=== PATIENT | female | born 1965 | race Caucasian/White ===

== ENCOUNTER → 2017-11-24 15:55 | Outpatient (CLI) | payer OTHER, SELFPAY ==
[2017-11-24 16:55] LABS: B Type Natriuretic Peptide 29.3 (<100)
[2017-11-24 16:56] LABS: BUN Creatinine Ratio 18.3 (6-22); Blood Urea Nitrogen 11 mg/dL (7-17); Calcium 9.4 mg/dL (8.4-10.2); Carbon Dioxide 35 mmol/L (22-32); Chloride 94 mmol/L (98-107); Estimated Glomerular Filt Rate > 60.0 mL/min (>60); Glucose 98 mg/dL (70-100); HEMOLYSIS < 15 (0-50); Potassium 4.6 mmol/L (3.4-5.1); Sodium 137 mmol/L (137-145)
== END ==
PROVIDERS: PCP Family Medicine; Visit Provider Family Medicine
DX: R60.0 Localized edema (principal)
CPT/HCPCS: 36415; 80048; 83880

== ENCOUNTER 2017-11-28 14:14 | Emergency (ER) | payer OTHER, SELFPAY ==
[2017-11-28 14:27] VITALS: BP 130/89; PULSE 91; RESP 16; TEMP 36.8; O2SAT 95
--- NOTE | 2017-11-28 14:46 | ED.ALLEREA ---
HPI - Allergic Reaction General Chief complaint: Allergic Reaction Stated complaint: FACE,LEGS SWELLING, POSSIBLE ALLERGIC REACTION Time Seen by Provider: 11/28/17 14:45 Source: patient Mode of arrival: ambulatory Limitations: no limitations History of Present Illness HPI narrative: 52-year-old female here for evaluation of possible reaction to her medicines. Patient states that every summer she develops lower extremity edema and in the past has been on spironolactone. She states that this year her primary doctor started her on hydrochlorothiazide and over the past 2 weeks she has been increasing that medicine slowly. She states that her edema has not improved. She states that normally improves the spinal lack tone. She states that over the past 24 hr she has developed some itchy skin. She states she called her primary doctor whose nurse instructed her to come to the emergency department. Related Data Home Medications Medication Instructions Recorded Confirmed ondansetron 8 mg SUBLINGUAL Q6HP PRN #0 10/09/16 11/28/17 [CBD cream] 1 applic TOPICAL DIRECTED #0 07/18/17 11/28/17 buspirone 60 mg PO DAILY 11/28/17 11/28/17 divalproex [Depakote] 1,000 mg PO DAILY 11/28/17 11/28/17 Previous Rx's Medication Instructions Recorded albuterol sulfate [Ventolin HFA] 2 puff INH SEE INSTRUCTIONS #1 ea 02/13/17 estradiol [Estrace] 2 mg PO Q DAY #90 tab 04/18/17 omeprazole 40 mg OR QDAY #90 cap 10/21/17 lamotrigine 150 mg tablet 150 mg PO QDAY #90 tab 10/31/17 spironolactone 100 mg PO DAILY #30 tab 11/28/17 Allergies Allergy/AdvReac Type Severity Reaction Status Date / Time lorazepam [From ATIVAN] Allergy Intermediate PT REFUSES Verified 11/28/17 14:33 MEDICATION morphine [MORPHINE] Allergy Intermediate PT REFUSES Verified 11/28/17 14:33 MEDICATION Review of Systems Constitutional Denies fatigue, Denies fever(s) and Denies lethargy Eyes Denies diplopia ENT Ears, Nose, Mouth, and Throat: Denies dizziness, Denies mouth lesions, Denies sinus pain, Denies sore throat, Denies throat swelling and Denies tongue swelling Cardiovascular Denies chest pain, Denies syncope, Denies palpitations and Denies dyspnea Respiratory Denies cough and Denies dyspnea Gastrointestinal Gastrointestinal: Denies diarrhea, Denies nausea and Denies vomiting Genitourinary Denies dysuria Musculoskeletal Comments: Bilateral lower extremity edema right greater than left Integumentary/Breasts Reports pruritus and Denies rash Neurologic Denies behavioral changes, Denies dizziness and Denies syncope Psychiatric Denies behavioral changes Endocrine Denies fatigue and Denies palpitations Hematologic/Lymphatic Denies easy bleeding and Denies easy bruising Allergic/Immunologic Denies throat swelling and Denies tongue swelling [facility] Medical History Fibromyalgia (Chronic 2008) Hypertension (Chronic) Bipolar affective disorder (Chronic 1973) Presence of colostomy (Chronic 10/09/16) Gastroesophageal reflux disease without esophagitis (Chronic 10/09/16) Gastroparesis (Chronic 10/09/16) Tobacco use (Chronic 10/09/16) Generalized anxiety disorder (Chronic 1973) Obesity with body mass index (BMI) of 30.0 to 39.9 (Chronic 07/29/17) Insomnia (Chronic 07/29/17) ADHD (attention deficit hyperactivity disorder) (Chronic) Asthma (Chronic 1964) Depression (Chronic 1973) Gastric ulcer (Chronic) Hayfever (Chronic 1964) Hiatal hernia (Chronic) Osteoarthritis (Chronic 2012) Osteoporosis (Chronic 2010) PTSD (post-traumatic stress disorder) (Chronic 1973) RLS (restless legs syndrome) (Chronic 1992) Shoulder pain (Chronic 2016) Anemia (Resolved ~1975) Cervical cancer (Resolved) Fractures (Resolved 1975) Surgical History Anesthesia (Resolved) History of bladder suspension procedure (Resolved 2003) Status post breast biopsy (Resolved) Status post colostomy (Resolved) Status post dilation and curettage (Resolved) Status post hysterectomy (Resolved) Status post rotator cuff repair (Resolved 2014) Status post tubal ligation (Resolved) Family History Grandmother Stroke Grandfather Emphysema, unspecified Social History Smoking Status: Current every day smoker Exam Initial Vital Signs Initial Vital Signs: Vital Signs Temperature 98.2 F 11/28/17 14:27 Pulse Rate 91 H 11/28/17 14:27 Respiratory Rate 16 11/28/17 14:27 Blood Pressure 130/89 H 11/28/17 14:27 Pulse Oximetry 95 11/28/17 14:27 Const General: cooperative, healthy appearing, comfortable, well developed and well groomed [facility] Head: normal to inspection, normocephalic and atraumatic Resp Effort & Inspection: normal respiratory effort Auscultation: clear to auscultation bilaterally Cardio Rate: regular rate Rhythm: regular rhythm Pulses: radial pulses present Skin Lesions: no lesions Rashes: no rashes Wounds: no wounds Neuro General: alert, awake and oriented x3 Cognition: normal cognition Speech: speech normal Extrem Other: Bilateral lower extremity 1+ pitting edema right greater than left Course Vital Signs - 8 hr 11/28/17 14:27 11/28/17 15:29 11/28/17 15:45 Temperature 98.2 F 98.4 F Pulse Rate 91 H 83 88 Respiratory Rate 16 18 15 Blood Pressure 130/89 H 144/85 H Blood Pressure [Right Arm] 147/85 H Pulse Oximetry 95 96 98 MDM - Allergic Reaction MDM Narrative Medical decision making narrative: Patient with physical exam not consistent with anaphylaxis. Difficult to pin the symptoms she is having today on the hydrochlorothiazide that she has been taking for the past 3 weeks. Patient states she was no longer going to take the hydrochlorothiazide because she feels like she is having reaction to it. Will start her on spironolactone since this has helped her in the past. No need for steroids or Benadryl or epinephrine. Informed patient that she needed to contact her primary doctor to discuss the medication change. She was given return precautions. She expressed understanding and agreement with plan Discharge Plan Departure Patient Disposition: Home, Self-Care Clinical Impression: Edema, peripheral Discharge Date/Time: 11/28/17 15:45 Interventions: ED Discharge Assessment Last Done: 11/28/17 15:45 Instructions: Edema (Alternative Therapy), DI for Dependent Edema, DI for Peripheral Edema -- Bilateral Activity Restrictions/Additional Instructions: Recommend that you stop the hydrochlorothiazide. Start the spironolactone as directed. Call your primary doctor on Friday to discuss this change in medication and to discuss any follow-up. Return to the emergency department for any new or worsening symptoms Prescriptions: New spironolactone 100 mg tablet 100 mg PO DAILY Qty: 30 RF: 0 No Action ondansetron 8 MG tablet,disintegrating 8 mg Sublingual Q6HP PRN (Reason: Nausea) Qty: 0 RF: 0 albuterol sulfate [Ventolin HFA] 90 MCG/PUFF HFA aerosol inhaler 2 puff INH SEE INSTRUCTIONS Qty: 1 RF: 3 estradiol [Estrace] 2 MG tablet 2 mg PO Q DAY Qty: 90 RF: 3 [CBD cream] 1 applic Topical DIRECTED Qty: 0 RF: 0 omeprazole 40 mg capsule,delayed release(DR/EC) 40 mg OR QDAY Qty: 90 RF: 0 lamotrigine [Lamictal] 150 mg tablet 150 mg PO QDAY Qty: 90 RF: 0 divalproex [Depakote] 500 mg tablet,delayed release (DR/EC) 1,000 mg PO DAILY RF: 0 buspirone 30 mg tablet 60 mg PO DAILY RF: 0
[2017-11-28 15:29] VITALS: BP 147/85; PULSE 83; RESP 18; TEMP 36.9; O2SAT 96
[2017-11-28 15:45] VITALS: BP 144/85; PULSE 88; RESP 15; O2SAT 98
== END 2017-11-28 15:45 | disposition home or self-care (01) ==
PROVIDERS: Emergency Provider Emergency Medicine; PCP Family Medicine
DX: R60.0 Localized edema (principal)
CPT/HCPCS: 99282

== ENCOUNTER → 2018-01-06 15:03 | Outpatient (CLI) | payer OTHER, SELFPAY ==
[2018-01-06 16:18] LABS: Blood Urea Nitrogen 14 mg/dL (7-17); Calcium 10.1 mg/dL (8.4-10.2); Carbon Dioxide 32 mmol/L (22-32); Chloride 98 mmol/L (98-107); Estimated Glomerular Filt Rate > 60.0 mL/min (>60); Glucose 92 mg/dL (70-100); HEMOLYSIS < 15 (0-50); Potassium 5.5 mmol/L (3.4-5.1); Sodium 138 mmol/L (137-145)
== END ==
PROVIDERS: PCP Family Medicine; Visit Provider Family Medicine
DX: R60.0 Localized edema (principal)
CPT/HCPCS: 36415; 80048

== ENCOUNTER → 2018-03-09 12:19 | Outpatient (CLI) | payer OTHER, SELFPAY ==
--- NOTE | 2018-03-09 12:23 | DI.RAD.S_ITS ---
PROCEDURE: XR FOOT RT MIN 3V INDICATIONS: right foot pain TECHNIQUE: 3 views of the foot were acquired. COMPARISON: [facility], , FOOT 3V RIGHT, 07/13/2017, 16:35. FINDINGS: Bones: No fractures or dislocations. No suspicious bony lesions. Mild degenerative changes are seen. Incidental note is made of an enthesophyte at the Achilles insertion. Incidental note is made of an accessory ossicle, an os trigonum. Soft tissues: No tibiotalar joint effusion. Achilles tendon appears normal. IMPRESSION: Unremarkable plain film study for age. If there is point tenderness (or other clinical suspicion for a fracture not seen on these images) then a dedicated CT could be considered for further evaluation, as clinically appropriate. Dictated by: Aram Cavanaugh M.D. on 03/09/2018 at 12:07 Approved by: Aram Cavanaugh M.D. on 03/09/2018 at 12:08
== END ==
PROVIDERS: PCP Family Medicine; Visit Provider Internal Medicine
DX: M79.671 Pain in right foot (principal)
CPT/HCPCS: 73630

== ENCOUNTER → 2018-07-28 06:57 | Outpatient (CLI) | payer OTHER, SELFPAY ==
--- NOTE | 2018-07-28 06:59 | DI.US.S_ITS ---
PROCEDURE: US PERIPH VENOUS LOW EXTREM BI INDICATIONS: SWELLING, TENDERNESS TECHNIQUE: Real-time imaging, as well as color and pulse Doppler interrogation, were performed of the deep veins of both legs from the inguinal ligament to the popliteal fossa. COMPARISON: None. FINDINGS: The deep veins are normally compressible, and free of intraluminal thrombus. Color and pulse Doppler demonstrate normal phasic intravascular flow. There is normal augmentation response to distal compression maneuver. Incidental note is made of bilateral popliteal cysts. IMPRESSION: 1. No evidence of deep vein thrombosis of the lower extremities. 2. Bilateral Pompa's cysts. Dictated by: Luis Fernando Aaron M.D. on 07/28/2018 at 8:23 Approved by: Luis Fernando Aaron M.D. on 07/28/2018 at 8:24
== END ==
PROVIDERS: PCP Family Medicine; Visit Provider Registered Nurse
DX: R60.0 Localized edema (principal); M71.22 Synovial cyst of popliteal space [Baker], left knee; M71.21 Synovial cyst of popliteal space [Baker], right knee
CPT/HCPCS: 93970

== ENCOUNTER → 2018-08-04 12:25 | Outpatient (CLI) | payer OTHER, SELFPAY ==
[2018-08-04 13:43] LABS: TSH w/ Reflex to FT4 2.91 uIU/mL (0.47-4.68)
[2018-08-07 14:26] LABS: Valproic Acid (Depakene) Total 40.6 mg/L (50.0-100.0)
== END ==
PROVIDERS: PCP Family Medicine; Visit Provider Family Medicine
DX: R63.5 Abnormal weight gain (principal); F31.9 Bipolar disorder, unspecified; R23.2 Flushing
CPT/HCPCS: 36415; 80164; 83001; 84443

== ENCOUNTER → 2019-06-22 10:45 | Outpatient (CLI) | payer OTHER, SELFPAY ==
[2019-06-22 11:28] LABS: Influenza A - CEPHEID Flu A NEGATIVE (NEGATIVE); Influenza B - CEPHEID Flu B NEGATIVE (NEGATIVE)
== END ==
LOC: LAB 10:46
PROVIDERS: PCP Family Medicine; Visit Provider Nurse Practitioner Family
DX: R50.9 Fever, unspecified (principal)
CPT/HCPCS: 87502

== ENCOUNTER → 2019-07-06 10:23 | Outpatient (CLI) | payer OTHER, SELFPAY ==
[2019-07-06 11:13] LABS: Add Manual Diff / Slide Review NO; Basophils Absolute Auto 100 /uL (0-100); Basophils Percent Auto 1.4 % (0-2); Eosinophils Absolute Auto 0 /uL (0-450); Eosinophils Percent Auto 0.3 % (2-4); Hematocrit 45.9 % (36-46); Hemoglobin 15.7 g/dL (12.0-16.0); Lymphocytes Absolute Auto 2600 /uL (1100-4500); Lymphocytes Percent Auto 39.7 % (25-40); Mean Corpuscular HGB Conc 34.1 % (30-36); Mean Corpuscular Hemoglobin 32.4 PG (26-34); Mean Corpuscular Volume 95.1 fL (80-100); Monocytes Absolute Auto 700 /uL (0-900); Monocytes Percent Auto 11.3 % (3-14); Neutrophils Absolute Auto 3100 /uL (1500-7000); Neutrophils Percent Auto 47.3 % (50-75); Platelet Count 216 X10^3/uL (150-400); Red Blood Cell Count 4.83 X10^6/uL (4.0-5.2); Red Cell Distribution Width 13.2 % (11.6-14.8); White Blood Cell Count 6.5 X10^3/uL (4.5-11.0)
[2019-07-06 11:23] LABS: Alanine Aminotransferase 61 IU/L (<35); Albumin 4.3 g/dL (3.5-5.0); Albumin Globulin Ratio 1.3 (1.0-2.8); Alkaline Phosphatase 108 U/L (38-126); Aspartate Aminotransferase 44 IU/L (14-36); BUN Creatinine Ratio 17.1 (6-22); Bilirubin Total 0.5 mg/dL (0.2-1.3); Blood Urea Nitrogen 12 mg/dL (7-17); Calcium 9.5 mg/dL (8.4-10.2); Carbon Dioxide 31 mmol/L (22-32); Chloride 100 mmol/L (98-107); Cholesterol 238 mg/dL (140-199); Estimated Glomerular Filt Rate > 60.0 mL/min (>60); Globulin 3.4 g/dL (1.7-4.1); Glucose 172 mg/dL (70-100); HDL Cholesterol 45 mg/dL (40-60); HEMOLYSIS 22 (0-50); LDL Cholesterol Calculated 166 mg/dL (<100); Potassium 4.8 mmol/L (3.4-5.1); Sodium 139 mmol/L (137-145); Total Protein 7.7 g/dL (6.3-8.2); Triglycerides 133 mg/dL (35-150)
[2019-07-09 13:56] LABS: Valproic Acid (Depakene) Total 60.7 mg/L (50.0-100.0)
== END ==
PROVIDERS: PCP Family Medicine; Visit Provider Family Medicine
DX: E66.01 Morbid (severe) obesity due to excess calories (principal); I10 Essential (primary) hypertension; Z68.41 Body mass index [BMI] 40.0-44.9, adult; F31.9 Bipolar disorder, unspecified
CPT/HCPCS: 36415; 80053; 80061; 80164; 85025

== ENCOUNTER → 2019-08-16 14:45 | Outpatient (CLI) | payer OTHER, SELFPAY ==
[2019-08-16 19:01] LABS: Hemoglobin A1C% w Est Avg Glu 7.1 % (4.0-6.0)
== END ==
LOC: LAB 14:46
PROVIDERS: PCP Family Medicine; Referring Provider Family Medicine; Visit Provider Family Medicine
DX: R73.9 Hyperglycemia, unspecified (principal)
CPT/HCPCS: 36415; 83036

== ENCOUNTER → 2019-12-29 09:01 | Outpatient (CLI) | payer OTHER, SELFPAY ==
--- NOTE | 2019-12-29 09:14 | DI.RAD.S_ITS ---
PROCEDURE: XR LUMBAR SPINE MIN 4V INDICATIONS: Other intervertebral disc displacement, lumbar region TECHNIQUE: 5 views of the lumbar spine were acquired. COMPARISON: 07/29/13. FINDINGS: Bones: No fracture or focal osseous destruction. Straightening of the normal lordotic curvature. Diffuse moderate narrowing of the lumbar disc spaces with relative sparing at L1-L2. Levoscoliosis noted. Trace anterolisthesis of L3 on L4. Multilevel degenerative endplate sclerosis and spurring. Diffuse facet arthropathy. Bilateral hip joint degeneration also noted. Soft tissues: Overlying bowel gas pattern is normal. No suspicious soft tissue calcifications. Oblique images: No pars defects. IMPRESSION: Levoscoliosis. Diffuse moderate lumbar spondylosis, which has progressed since 07/29/13 Dictated by: Sergio Hernandez M.D. on 12/29/2019 at 10:05 Approved by: Sergio Hernandez M.D. on 12/29/2019 at 10:09
== END ==
PROVIDERS: PCP Family Medicine; Referring Provider Physical Medicine & Rehabilitation; Visit Provider Physical Medicine & Rehabilitation
DX: M51.26 Other intervertebral disc displacement, lumbar region (principal); M47.816 Spondylosis without myelopathy or radiculopathy, lumbar region; M16.0 Bilateral primary osteoarthritis of hip; E66.01 Morbid (severe) obesity due to excess calories; Z68.42 Body mass index [BMI] 45.0-49.9, adult; Z98.890 Other specified postprocedural states
CPT/HCPCS: 72110; 99214

== ENCOUNTER → 2019-12-30 10:27 | Outpatient (CLI) | payer OTHER, SELFPAY ==
[2019-12-30 11:08] LABS: Hemoglobin A1C% w Est Avg Glu 7.8 % (4.0-6.0)
[2019-12-30 11:43] LABS: Creatinine Urine Random 20.6 mg/dL
[2019-12-30 11:50] LABS: Microalbumi Creatinin Ratio Ur 29.1 ug/mg CR (<30); Microalbumin Urine Random < 0.6 mg/dL (0-1.6)
== END ==
PROVIDERS: PCP Family Medicine; Referring Provider Family Medicine; Visit Provider Family Medicine
DX: E11.9 Type 2 diabetes mellitus without complications (principal)
CPT/HCPCS: 36415; 82043; 82570; 83036

== ENCOUNTER → 2019-12-31 16:05 | Outpatient (CLI) | payer OTHER, SELFPAY ==
--- NOTE | 2019-12-31 16:06 | DI.MRI.S_ITS ---
PROCEDURE: MR LUMBAR SPINE WO CON INDICATIONS: Lumbar radiculopathy TECHNIQUE: Noncontrast sagittal T1 spin echo and T2 fast echo, sagittal STIR, axial T1 and T2 fast spin echo through the lumbar spine. In cases with scoliosis, additional coronal T2 fast spin echo may be performed. COMPARISON: [facility], CR, XR LUMBAR SPINE MIN 4V, 12/29/2019, 9:13. FINDINGS: Image quality: Excellent. Alignment and Curvature: 5 lumbar type vertebral bodies are present by plain film. Mild leftward curvature of the lower lumbar spine. Mild grade 1 retrolisthesis of L2 on L3 and L3 on L4. Bone Marrow: Marrow is of normal overall signal. No acute vertebral body compression fractures. Mild reactive signal within the endplates adjacent to the L2-L3, L4-L5, and L5-S1 intervertebral discs. Spinal Cord: Conus medullaris terminates at the upper L1 level. Visualized cord demonstrates normal signal and size. Paraspinous Soft Tissues: No paravertebral masses. L1-L2: Mild disc desiccation. Mild bilateral facet hypertrophy. Mild epidural lipomatosis. No significant canal, nor foraminal stenosis. L2-L3: Moderate disc desiccation. Mild diffuse disc bulge. Mild facet and ligamentum flavum hypertrophy. Mild epidural lipomatosis. Mild canal stenosis. Mild bilateral foraminal stenosis. L3-L4: Mild disc desiccation. Mild diffuse disc bulge. Mild facet and ligamentum flavum hypertrophy. Mild epidural lipomatosis. Moderate canal stenosis. Mild bilateral foraminal stenosis. L4-L5: Moderate disc desiccation. Mild diffuse disc bulge with superimposed left paracentral small protrusion. Mild facet and ligamentum flavum hypertrophy. Mild epidural lipomatosis. Moderate canal stenosis. Moderate left and mild right foraminal stenosis. There is abutment of the left L5 nerve root within the lateral recess without definite associated neural compression nor deviation. L5-S1: Severe disc height loss and desiccation. Mild diffuse disc bulge/osteophyte. Mild bilateral facet hypertrophy. Mild canal stenosis. Mild bilateral foraminal stenosis. IMPRESSION: 1. Multilevel degenerative disc and facet disease, as well as ligamentum flavum hypertrophy and epidural lipomatosis. 2. Multilevel canal stenosis, worst at L4-L5, where there is moderate canal stenosis. 3. Multilevel foraminal stenoses, worst at L4-L5 on the left where there is moderate foraminal stenosis. 4. L4-L5 disc protrusion which abuts the left L5 nerve root without definite neural compression or deviation. Recommend correlation with clinical symptoms to ascertain relevance of this finding. Dictated by: Brennan Luna M.D. on 12/31/2019 at 16:20 Approved by: Brennan Luna M.D. on 12/31/2019 at 16:25
== END ==
PROVIDERS: PCP Family Medicine; Referring Provider Physical Medicine & Rehabilitation; Visit Provider Physical Medicine & Rehabilitation
DX: M51.16 Intervertebral disc disorders with radiculopathy, lumbar region (principal); M51.17 Intervertebral disc disorders with radiculopathy, lumbosacral region; M48.061 Spinal stenosis, lumbar region without neurogenic claudication; M48.07 Spinal stenosis, lumbosacral region; E88.2 Lipomatosis, not elsewhere classified; Z98.890 Other specified postprocedural states
CPT/HCPCS: 72148

== ENCOUNTER → 2020-01-29 08:20 | Outpatient (CLI) | payer OTHER, SELFPAY ==
[2020-01-30 18:51] LABS: COVID19 Sendout Not Detected (Not Detect)
== END ==
PROVIDERS: PCP Family Medicine; Visit Provider Nurse Practitioner
DX: Z11.59 Encounter for screening for other viral diseases (principal)
CPT/HCPCS: 87635

== ENCOUNTER 2020-02-01 13:00 | Outpatient (CLI) | payer OTHER, SELFPAY ==
[2020-02-01] VITALS (7 sets, daily range): BP systolic 123–165; BP diastolic 71–89; PULSE 81–92; RESP 12–22; TEMP 36.4; O2SAT 95–99
--- NOTE | 2020-02-01 13:01 | DI.RAD.S_ITS ---
PROCEDURE: PAIN L/S TRANSFORAMINAL INJECT INDICATIONS: Left L4-5 transforaminal NEFTALI COMPARISON: None. FINDINGS: Fluoroscopic spot filming was performed to verify placement of spinal needles at the L4-L5 level(s), as labeled on the films. Appropriate location(s) of the needle tip(s) was confirmed by injection of iodinated contrast. Dictated by: Sergio Hernandez M.D. on 02/01/2020 at 15:53 Approved by: Sergio Hernandez M.D. on 02/01/2020 at 15:54
[2020-02-01] MEDS: MIDAZOLAM 5 MG/5 ML VIAL IV (14:03)
[2020-02-01] MEDS: fentaNYL 100 MCG/2 ML INJ 50 MCG IV (14:03)
[2020-02-01] MEDS: DEXAMETHASONE 10 MG/ML VIAL 20 MG INJ (14:09)
[2020-02-01] MEDS: IOPAMIDOL 15 ML VIAL 3 ML INJ (14:09)
[2020-02-01] MEDS: BUPIVACAINE 0.25% (PF) VIAL 2 ML INJ (14:09)
[2020-02-01] MEDS: BETAMETHASONE 30 MG/5 ML MDV 6 MG INJ (14:09)
--- NOTE | 2020-02-01 14:23 | P.PCN_ITS ---
Date/Time/Diagnoses Date of procedure: 02/01/20 Time of procedure: 14:23 Pre-procedure diagnosis: 1. FORAMINAL STENOSIS WITH LE SYMPTOMS Post-procedure diagnosis: same Procedure Notes Procedure: 1. FLUOROSCOPICALLY GUIDED CONTRAST CONTROLLED TRANSFORAMINAL EPIDURAL STEROID INJECTION - LEFT L4/5 Indications: Cal is referred by for treatment of Foraminal Stenosis with Left LE Symptoms Physician: Obed Knapp Total Fluoroscopy time (seconds): 22 Total sedation minutes: 18 Complications: none Procedure in detail & Post-procedure care: FINDINGS Foraminal Nerve Root Compression secondary to disc disease and facet hypertrophy DESCRIPTION OF PROCEDURE Following review of allergy and review of potential side effects and complications, including, but not necessarily limited to, infection, allergic reaction, local tissue breakdown, stroke, temporary or permanent nerve injury, paralysis, and possible , the patient indicated that the patient understood and agreed to proceed. An informed consent document was signed by the patient, witnessed by a nurse, and placed in the patient's chart. Additionally, other treatment options including medications, modalities, and physical therapy were reviewed with the patient. After review of previous anaesthesic history and IV conscious sedation the patient was deemed safe to proceed with today?s procedure with IV conscious sedation as ASA class II designation. Safety time-out was performed to confirm patient ID, procedure to be performed and site of procedure. IV sedation was accomplished with a combination of 2mg of Versed and 50mcg of Fentanyl administered by the RN after DO order, titrated to patient comfort during the course of the procedure while the patient remained responsive to all verbal commands In the prone position following sterile prep and drape of the lumbar region, the left L4/5 posterior neuroforamen was identified fluoroscopically. The skin was anesthetized via a 25-gauge 1.5-inch needle with 1% lidocaine solution. At this point, a 22-gauge 5-inch spinal needle was atraumatically introduced and advanced under fluoroscopic guidance through the posterior left L4/5 neuroforamen to approximately the anterior aspect of the canal. Depth was confirmed on lateral view. Following negative aspiration, injection of approximately 1.5 cc of Isovue 200 under live fluoroscopy in the AP view confirmed excellent flow along the nerve root, into the epidural space without vascular or intrathecal uptake observed Radiological data, including multiple fluoroscopic views of the lumbosacral spine, reveal a spinal needle at the left L4/5 posterior neuroforamen. Subsequent views show flow of contrast material flowing superiorly and inferiorly along the nerve root confirming epidural flow. Subsequently, a test dose of 1.5 cc of 1% lidocaine solution was administered and patient was observed for two minutes for signs or symptoms of complications, including abdominal pain, shortness of breath, bilateral upper or lower extremity weakness, nausea and vomiting, prior to steroid injection. At this point, a total of 3cc or 20mg of dexamethasone and 6mg of betamethasone was injected without incident. The procedure tolerated the procedure well without signs or symptoms of complications prior to transfer to the recovery area continued monitoring without incident. The patient was then transferred to the recovery area where they were observed for an appropriate time after the injection. The patient reported a VAS score of 7 prior to the procedure and a post- procedure VAS of 0. POST OP INSTRUCTIONS The patient was provided a Pain Log to continue to record their response to the target-specific procedure prior to follow-up visit with their referring physician. Additionally, specific post-injection care instructions and a contact number to our office were provided if concerns arise regarding possible complications associated with the procedure are suspected.
== END 2020-02-01 14:52 | disposition home or self-care (01) ==
PROVIDERS: PCP Family Medicine; Referring Provider Family Medicine; Visit Provider Physical Medicine & Rehabilitation
DX: M48.061 Spinal stenosis, lumbar region without neurogenic claudication (principal); M51.16 Intervertebral disc disorders with radiculopathy, lumbar region
CPT/HCPCS: 64483; 99152; 99153; J0702; J1100; J2250; J3010

== ENCOUNTER → 2020-03-13 10:59 | Outpatient (CLI) | payer OTHER, SELFPAY ==
[2020-03-14 07:47] LABS: COVID19 Sendout Not Detected (Not Detect)
== END ==
PROVIDERS: PCP Family Medicine; Visit Provider Physician Assistant
DX: Z11.59 Encounter for screening for other viral diseases (principal)
CPT/HCPCS: 87635

== ENCOUNTER 2020-03-16 10:43 | Outpatient (CLI) | payer OTHER, SELFPAY ==
[2020-03-16] VITALS (7 sets, daily range): BP systolic 119–153; BP diastolic 74–88; PULSE 83–86; RESP 14–18; TEMP 36.4; O2SAT 92–97
--- NOTE | 2020-03-16 10:46 | DI.RAD.S_ITS ---
PROCEDURE: PAIN L INTERLAMINAR/CAUDAL INJ INDICATIONS: SPONDYLOSIS COMPARISON: None. FINDINGS: Fluoroscopic spot filming was performed to verify placement of spinal needles at the left L4-L5 epidural space via a translaminar approach as labeled on the films. Appropriate location(s) of the needle tip(s) was confirmed by injection of iodinated contrast. IMPRESSION: Access needle placed at the left L4-L5 epidural space via a translaminar approach. Dictated by: Nellie Hernandes MD, PhD on 03/16/2020 at 14:44 Approved by: Nellie Hernandes MD, PhD on 03/16/2020 at 14:44
[2020-03-16] MEDS: fentaNYL 100 MCG/2 ML INJ 50 MCG IV (12:00)
[2020-03-16] MEDS: MIDAZOLAM 5 MG/5 ML VIAL IV (12:00)
[2020-03-16] MEDS: BETAMETHASONE 30 MG/5 ML MDV 6 MG INJ (12:02)
[2020-03-16] MEDS: IOPAMIDOL 15 ML VIAL 3 ML INJ (12:02)
[2020-03-16] MEDS: DEXAMETHASONE 10 MG/ML VIAL 20 MG INJ (12:03)
[2020-03-16] MEDS: BUPIVACAINE 0.25% (PF) VIAL 2 ML INJ (12:03)
--- NOTE | 2020-03-16 12:13 | P.PCN_ITS ---
Date/Time/Diagnoses Date of procedure: 03/16/20 Time of procedure: 12:13 Pre-procedure diagnosis: 1. HNP WITH RADICULAR FEATURES, 2. MULTILEVEL CENTRAL STENOSIS, Post-procedure diagnosis: same Procedure Notes Procedure: 1. FLUOROSCOPICALLY GUIDED CONTRAST CONTROLLED INTERLAMINAR EPIDURAL STEROID INJECTION -PARA LEFT L4/5 Indications: Cal is referred by Dr. Combs for treatment of Bilateral Foraminal Stenosis R>L LE symptoms. Physician: Obed Knapp Total Fluoroscopy time (seconds): 8 Total sedation minutes: 9 Complications: none Procedure in detail & Post-procedure care: FINDINGS Multilevel Central Spinal Stenosis with Nerve Root Compression DESCRIPTION OF PROCEDURE Fluoroscopically guided, contrast-controlled L4/5 translaminar epidural steroid injection. Following review of allergy and review of potential side effects and complications, including, but not necessarily limited to, infection, allergic reaction, local tissue breakdown, temporary as well as permanent nerve injury, paralysis, stroke and possible , the patient indicated that the patient understood and agreed to proceed. An informed consent document was signed by the patient, witnessed by a nurse, and placed in the patient's chart. Additionally, other treatment options including modalities, medications, and physical therapy were reviewed with the patient. After review of previous anaesthesic history and IV conscious sedation the patient was deemed safe to proceed with today?s procedure with IV conscious sedation as ASA class II designation. Safety time-out was performed to confirm patient ID, procedure to be performed and site of procedure. IV sedation was accomplished with a combination of 2mg of Versed and 50mcg of Fentanyl was administered by the RN after DO order, titrated to patient comfort during the course of the procedure while the patient remained responsive to all verbal commands In the prone position, following sterile prep and drape of the lumbar region, th e L4/5 translaminar space was identified fluoroscopically. The skin was anesthetized via a 25-gauge, 1.5inch needle with 1% lidocaine solution. At this point, a 22-gauge short bevel spinal needle was atraumatically introduced and advanced under fluoroscopic guidance into the region of the L4/5 translaminar space. Depth was confirmed on lateral view. Radiological data, including multiple fluoroscopic views of the lumbar spine, reveal a spinal needle at the L4/5 translaminar space. Lateral views then show placement of the needle in the epidural space. Subsequent views show contrast material flowing superiorly and inferiorly in the epidural space. No vascular or intrathecal uptake is observed. At this point, using loss of resistance technique with saline and air, the epidural space was entered. This was confirmed following negative aspiration with injection of approximately 1.5cc of Isovue 200, showing excellent epidural flow without vascular or intrathecal uptake. At this point, 1cc of 1% lidocaine solution combined with 3cc or 20mg of dexamethasone and 6mg betamethasone was injected without incident. The patient tolerated the procedure well without signs or symptoms of complications prior to transfer to the recovery area continued monitoring without incident. The patient was then transferred to the recovery area where they were observed for an appropriate period of time after the injection. The patient reported a VAS score of 6 prior to the procedure and a post- procedure VAS of 0. POST OP INSTRUCTIONS The patient was provided a Pain Log to continue to record their response to the target-specific procedure prior to follow-up visit with their referring physician. Additionally, specific post-injection care instructions and a contact number to our office were provided if concerns arise regarding possible complications associated with the procedure are suspected.
--- NOTE | 2020-03-16 16:04 | PC.NURSE ---
All Sedation Medication administered by ROSY Dukes. All other procedural meds administered by Dr. Knapp
== END 2020-03-16 12:34 | disposition home or self-care (01) ==
LOC: RAD 10:45
PROVIDERS: PCP Family Medicine; Referring Provider Physical Medicine & Rehabilitation; Visit Provider Physical Medicine & Rehabilitation
DX: M51.16 Intervertebral disc disorders with radiculopathy, lumbar region (principal); M48.061 Spinal stenosis, lumbar region without neurogenic claudication
CPT/HCPCS: 62323; 99152; J0702; J1100; J2250; J3010

== ENCOUNTER → 2020-04-24 12:50 | Outpatient (CLI) | payer OTHER, SELFPAY | PROVIDERS: PCP Family Medicine; Referring Provider Surgery; Visit Provider Surgery | DX: R92.8 Other abnormal and inconclusive findings on diagnostic imaging of breast (principal); Z53.20 Procedure and treatment not carried out because of patient's decision for unspecified reasons ==

== ENCOUNTER → 2020-07-03 13:57 | Outpatient (CLI) | payer OTHER, SELFPAY | PROVIDERS: PCP Family Medicine; Visit Provider Family Medicine | DX: L02.91 Cutaneous abscess, unspecified (principal) | CPT/HCPCS: 87070; 87077; 87147; 87186; 87205 ==

== ENCOUNTER → 2020-07-10 12:34 | Outpatient (CLI) | payer OTHER, SELFPAY ==
[2020-07-10 12:58] LABS: Add Manual Diff / Slide Review NO; Basophils Absolute Auto 100 /uL (0-100); Basophils Percent Auto 0.7 % (0-2); Eosinophils Absolute Auto 100 /uL (0-450); Eosinophils Percent Auto 0.6 % (2-4); Hematocrit 45.3 % (36-46); Hemoglobin 15.7 g/dL (12.0-16.0); Lymphocytes Absolute Auto 3700 /uL (1100-4500); Lymphocytes Percent Auto 46.8 % (25-40); Mean Corpuscular HGB Conc 34.6 % (30-36); Mean Corpuscular Hemoglobin 32.5 PG (26-34); Mean Corpuscular Volume 93.9 fL (80-100); Monocytes Absolute Auto 700 /uL (0-900); Monocytes Percent Auto 9.5 % (3-14); Neutrophils Absolute Auto 3300 /uL (1500-7000); Neutrophils Percent Auto 42.4 % (50-75); Platelet Count 254 X10^3/uL (150-400); Red Blood Cell Count 4.82 X10^6/uL (4.0-5.2); Red Cell Distribution Width 12.9 % (11.6-14.8); White Blood Cell Count 7.8 X10^3/uL (4.5-11.0)
[2020-07-10 12:59] LABS: Hemoglobin A1C% w Est Avg Glu 7.7 % (4.0-6.0)
[2020-07-10 13:11] LABS: Alanine Aminotransferase 47 IU/L (<35); Albumin 4.1 g/dL (3.5-5.0); Albumin Globulin Ratio 1.5 (1.0-2.8); Alkaline Phosphatase 106 U/L (38-126); Aspartate Aminotransferase 37 IU/L (14-36); BUN Creatinine Ratio 13.4 (6-22); Bilirubin Total 0.3 mg/dL (0.2-1.3); Blood Urea Nitrogen 9 mg/dL (7-17); Calcium 9.6 mg/dL (8.4-10.2); Carbon Dioxide 30 mmol/L (22-32); Chloride 97 mmol/L (98-107); Estimated Glomerular Filt Rate > 60.0 mL/min (>60); Globulin 2.7 g/dL (1.7-4.1); Glucose 148 mg/dL (70-100); HEMOLYSIS 23 (0-50); Sodium 134 mmol/L (137-145); Total Protein 6.8 g/dL (6.3-8.2)
[2020-07-10 13:18] LABS: Potassium 5.4 mmol/L (3.4-5.1)
== END ==
LOC: LAB 12:34
PROVIDERS: PCP Family Medicine; Referring Provider Family Medicine; Visit Provider Family Medicine
DX: E11.9 Type 2 diabetes mellitus without complications (principal); R74.9 Abnormal serum enzyme level, unspecified; N61.1 Abscess of the breast and nipple
CPT/HCPCS: 36415; 80053; 83036; 85025

== ENCOUNTER → 2020-09-16 10:59 | Outpatient (CLI) | payer OTHER, SELFPAY ==
[2020-09-16 13:11] LABS: COVID19 -Nasal RAPID Negative (Negative)
== END ==
PROVIDERS: PCP Family Medicine; Visit Provider Physician Assistant
DX: Z20.822 Contact with and (suspected) exposure to COVID-19 (principal)
CPT/HCPCS: 87635

== ENCOUNTER → 2020-11-17 08:37 | Outpatient (CLI) | payer OTHER, SELFPAY ==
[2020-11-17 09:12] LABS: Add Manual Diff / Slide Review NO; Basophils Absolute Auto 100 /uL (0-100); Basophils Percent Auto 1.2 % (0-2); Eosinophils Absolute Auto 100 /uL (0-450); Hematocrit 47.4 % (36-46); Lymphocytes Absolute Auto 2500 /uL (1100-4500); Lymphocytes Percent Auto 32.4 % (25-40); Mean Corpuscular HGB Conc 33.8 % (30-36); Mean Corpuscular Hemoglobin 32.3 PG (26-34); Mean Corpuscular Volume 95.7 fL (80-100); Monocytes Absolute Auto 900 /uL (0-900); Monocytes Percent Auto 12.2 % (3-14); Neutrophils Absolute Auto 4100 /uL (1500-7000); Neutrophils Percent Auto 53.2 % (50-75); Platelet Count 244 X10^3/uL (150-400); Red Blood Cell Count 4.95 X10^6/uL (4.0-5.2); Red Cell Distribution Width 13.1 % (11.6-14.8); White Blood Cell Count 7.7 X10^3/uL (4.5-11.0)
[2020-11-17 09:22] LABS: Alanine Aminotransferase 31 IU/L (<35); Albumin Globulin Ratio 1.3 (1.0-2.8); Alkaline Phosphatase 103 U/L (38-126); Aspartate Aminotransferase 26 IU/L (14-36); BUN Creatinine Ratio 14.7 (6-22); Bilirubin Total 0.2 mg/dL (0.2-1.3); Blood Urea Nitrogen 10 mg/dL (7-17); Calcium 9.5 mg/dL (8.4-10.2); Carbon Dioxide 27 mmol/L (22-32); Chloride 100 mmol/L (98-107); Estimated Glomerular Filt Rate > 60.0 mL/min (>60); Globulin 3.1 g/dL (1.7-4.1); Glucose 156 mg/dL (70-100); HEMOLYSIS < 15 (0-50); Potassium 5.1 mmol/L (3.4-5.1); Sodium 136 mmol/L (137-145); Total Protein 7.1 g/dL (6.3-8.2)
== END ==
PROVIDERS: PCP Family Medicine; Referring Provider Family Medicine; Visit Provider Family Medicine
DX: L02.211 Cutaneous abscess of abdominal wall (principal); E11.9 Type 2 diabetes mellitus without complications
CPT/HCPCS: 36415; 80053; 83036; 85025

== ENCOUNTER → 2020-11-23 10:16 | Outpatient (CLI) | payer OTHER, SELFPAY ==
[2020-11-26 17:48] LABS: Valproic Acid (Depakene) Total 44 ug/mL (50-100)
== END ==
PROVIDERS: PCP Family Medicine; Visit Provider Family Medicine
DX: F31.9 Bipolar disorder, unspecified (principal)
CPT/HCPCS: 80164

== ENCOUNTER → 2022-05-20 08:01 | Outpatient (CLI) | payer OTHER, SELFPAY ==
[2022-05-20 09:41] LABS: Microalbumin Urine Random < 0.6 mg/dL (0-1.6)
[2022-05-20 09:48] LABS: Add Manual Diff / Slide Review NO; Basophils Absolute Auto 0 /uL (0-100); Basophils Percent Auto 0.8 % (0-2); Eosinophils Absolute Auto 100 /uL (0-450); Hematocrit 44.5 % (36-46); Hemoglobin 15.2 g/dL (12.0-16.0); Lymphocytes Absolute Auto 2600 /uL (1100-4500); Lymphocytes Percent Auto 48.3 % (25-40); Mean Corpuscular Hemoglobin 31.7 PG (26-34); Mean Corpuscular Volume 93.1 fL (80-100); Monocytes Absolute Auto 800 /uL (0-900); Monocytes Percent Auto 15.3 % (3-14); Neutrophils Absolute Auto 1900 /uL (1500-7000); Neutrophils Percent Auto 34.6 % (50-75); Platelet Count 229 X10^3/uL (150-400); Red Blood Cell Count 4.78 X10^6/uL (4.0-5.2); Red Cell Distribution Width 13.6 % (11.6-14.8); White Blood Cell Count 5.4 X10^3/uL (4.5-11.0)
[2022-05-20 09:58] LABS: Hemoglobin A1C% w Est Avg Glu 6.5 % (4.0-6.0)
[2022-05-20 10:05] LABS: Alanine Aminotransferase 38 IU/L (<35); Albumin Globulin Ratio 1.4 (1.0-2.8); Alkaline Phosphatase 87 U/L (38-126); Aspartate Aminotransferase 26 IU/L (14-36); BUN Creatinine Ratio 10.5 (6-22); Bilirubin Total 0.2 mg/dL (0.2-1.3); Blood Urea Nitrogen 6 mg/dL (7-17); Calcium 9.4 mg/dL (8.4-10.2); Carbon Dioxide 29 mmol/L (22-32); Chloride 96 mmol/L (98-107); Cholesterol 203 mg/dL (140-199); Estimated Glomerular Filt Rate > 60 mL/min (>60); Globulin 2.8 g/dL (1.7-4.1); Glucose 122 mg/dL (70-100); HDL Cholesterol 57 mg/dL (40-60); HEMOLYSIS < 15 (0-50); LDL Cholesterol Calculated 130 mg/dL (<100); Sodium 135 mmol/L (137-145); Total Protein 6.8 g/dL (6.3-8.2); Triglycerides 78 mg/dL (35-150)
[2022-05-20 10:21] LABS: TSH w/ Reflex to FT4 4.95 uIU/mL (0.47-4.68)
[2022-05-20 10:46] LABS: Free T4, Direct Thyroxine 1.25 ng/dL (0.78-2.19)
== END ==
PROVIDERS: PCP Family Medicine; Referring Provider Family Medicine; Visit Provider Family Medicine
DX: E11.9 Type 2 diabetes mellitus without complications (principal); E66.01 Morbid (severe) obesity due to excess calories; I10 Essential (primary) hypertension; Z68.42 Body mass index [BMI] 45.0-49.9, adult
CPT/HCPCS: 36415; 80053; 80061; 82043; 82570; 83036; 84439; 84443; 85025

== ENCOUNTER → 2022-05-23 11:32 | Outpatient (CLI) | payer OTHER, SELFPAY ==
[2022-05-23 13:55] LABS: BUN Creatinine Ratio 14.8 (6-22); Blood Urea Nitrogen 9 mg/dL (7-17); Calcium 9.2 mg/dL (8.4-10.2); Carbon Dioxide 31 mmol/L (22-32); Chloride 97 mmol/L (98-107); Estimated Glomerular Filt Rate > 60 mL/min (>60); Glucose 153 mg/dL (70-100); HEMOLYSIS < 15 (0-50); Potassium 4.3 mmol/L (3.4-5.1); Sodium 136 mmol/L (137-145)
== END ==
PROVIDERS: PCP Family Medicine; Referring Provider Family Medicine; Visit Provider Family Medicine
DX: E87.5 Hyperkalemia (principal)
CPT/HCPCS: 36415; 80048

== ENCOUNTER → 2022-06-17 10:14 | Outpatient (CLI) | payer OTHER, SELFPAY ==
[2022-06-17 11:58] LABS: Influenza A - CEPHEID Flu A NEGATIVE (NEGATIVE); Influenza B - CEPHEID Flu B NEGATIVE (NEGATIVE); Respiratory Syncytial Virus Negative (Negative)
[2022-06-17 11:59] LABS: COVID-19 CEPHEID 4-PLEX PCR Negative (Negative)
== END ==
PROVIDERS: PCP Family Medicine; Visit Provider Student in an Organized Health Care Education/Training Program
DX: R50.9 Fever, unspecified (principal); Z20.822 Contact with and (suspected) exposure to COVID-19
CPT/HCPCS: 0241U; 87507

== ENCOUNTER → 2022-11-05 15:28 | Outpatient (CLI) | payer OTHER, SELFPAY ==
[2022-11-07 00:17] LABS: Valproic Acid (Depakene) Total 30 ug/mL (50-100)
== END ==
PROVIDERS: PCP Family Medicine; Referring Provider Physician Assistant; Visit Provider Physician Assistant
DX: F31.9 Bipolar disorder, unspecified (principal)
CPT/HCPCS: 36415; 80164

== ENCOUNTER → 2022-11-18 11:57 | Outpatient (CLI) | payer OTHER, SELFPAY ==
[2022-11-18 13:20] LABS: Appearance Urine UA CLEAR; Bilirubin Urine UA 1+ (NEGATIVE); Color Urine UA YELLOW; Glucose Urine UA NEGATIVE (Negative); Ketones Urine UA 1+ (NEGATIVE); Leukocyte Esterase Urine UA TRACE (NEGATIVE); Nitrite Urine UA NEGATIVE (Negative); Occult Blood Urine UA NEGATIVE (Negative); Protein Urine UA NEGATIVE (Negative); Urobilinogen Urine UA 0.2 E.U./dL (0.2)
[2022-11-18 13:34] LABS: Amorphous Sediment Urine 2+; Bacteria Urine Many (>30); Culture Indicated Urine Specimen Cultured; Mucus Urine 1+ (Negative); RBC Urine 0-1/HPF (0-5/HPF); Squamous Epithelial Cell Urine 10-30 /HPF (0-5/HPF); WBC Urine 5-10/HPF (0-5/HPF)
[2022-11-18 13:42] LABS: Ictotest Urine Negative (Negative)
== END ==
PROVIDERS: PCP Family Medicine; Referring Provider Physician Assistant; Visit Provider Physician Assistant
DX: R30.9 Painful micturition, unspecified (principal)
CPT/HCPCS: 81001; 87077; 87086; 87186

== ENCOUNTER → 2022-12-02 06:58 | Outpatient (CLI) | payer OTHER, SELFPAY ==
[2022-12-02 08:59] LABS: Add Manual Diff / Slide Review NO; Basophils Percent Auto 0.2 % (0-2); Eosinophils Percent Auto 1.1 % (2-4); Hemoglobin 14.4 g/dL (12.0-16.0); Lymphocytes Percent Auto 35.9 % (25-40); Mean Corpuscular HGB Conc 33.5 % (30-36); Mean Corpuscular Hemoglobin 31.8 PG (26-34); Mean Corpuscular Volume 94.9 fL (80-100); Monocytes Percent Auto 9.8 % (3-14); Neutrophils Absolute Auto 4800 /uL (1500-7000); Platelet Count 260 X10^3/uL (150-400); Red Blood Cell Count 4.54 X10^6/uL (4.0-5.2); Red Cell Distribution Width 13.7 % (11.6-14.8)
[2022-12-02 09:00] LABS: Basophils Absolute Auto 0 /uL (0-100); Eosinophils Absolute Auto 100 /uL (0-450); Lymphocytes Absolute Auto 3200 /uL (1100-4500); Monocytes Absolute Auto 900 /uL (0-900)
[2022-12-02 09:37] LABS: Alanine Aminotransferase 42 IU/L (<35); Albumin 3.7 g/dL (3.5-5.0); Albumin Globulin Ratio 1.2 (1.0-2.8); Alkaline Phosphatase 89 U/L (38-126); Aspartate Aminotransferase 32 IU/L (14-36); BUN Creatinine Ratio 26.1 (6-22); Bilirubin Total 0.4 mg/dL (0.2-1.3); Blood Urea Nitrogen 12 mg/dL (7-17); Calcium 9.1 mg/dL (8.4-10.2); Carbon Dioxide 29 mmol/L (22-32); Chloride 99 mmol/L (98-107); Cholesterol 202 mg/dL (140-199); Estimated Glomerular Filt Rate > 60 mL/min (>60); Globulin 3.1 g/dL (1.7-4.1); Glucose 134 mg/dL (70-100); HDL Cholesterol 53 mg/dL (40-60); HEMOLYSIS 33 (0-50); LDL Cholesterol Calculated 129 mg/dL (<100); Potassium 4.9 mmol/L (3.4-5.1); Sodium 135 mmol/L (137-145); Total Protein 6.8 g/dL (6.3-8.2); Triglycerides 102 mg/dL (35-150)
[2022-12-02 09:51] LABS: Free T3, Triiodothyronine Free 4.65 pg/mL (2.77-5.27); Free T4, Direct Thyroxine 1.07 ng/dL (0.78-2.19)
[2022-12-02 09:53] LABS: Creatinine Urine Random 39.3 mg/dL
[2022-12-02 09:58] LABS: Microalbumin Urine Random < 0.6 mg/dL (0-1.6)
[2022-12-02 10:05] LABS: Thyroid Stimulating Hormone 3.62 uIU/mL (0.47-4.68)
[2022-12-02 16:39] LABS: HIV 1 & 2 Ab/Ag 4th Gen Combo NEGATIVE (NEGATIVE); Hep C Virus Ab w/Reflex Quant NEGATIVE s/c (NEGATIVE)
[2022-12-03 03:07] LABS: Labcorp Hemoglobin (Hb) A1c 6.7 % (4.8-5.6)
[2022-12-12 10:32] LABS: % Free Progesterone QNS; Free Progesterone QNS
[2022-12-12 10:33] LABS: Progesterone, Serum QNS
== END ==
PROVIDERS: PCP Nurse Practitioner; Referring Provider Nurse Practitioner; Visit Provider Nurse Practitioner
DX: Z00.00 Encounter for general adult medical examination without abnormal findings (principal); E11.69 Type 2 diabetes mellitus with other specified complication; E11.9 Type 2 diabetes mellitus without complications; E78.2 Mixed hyperlipidemia; F31.9 Bipolar disorder, unspecified; F41.1 Generalized anxiety disorder; G47.00 Insomnia, unspecified; K31.84 Gastroparesis; I10 Essential (primary) hypertension; Z79.899 Other long term (current) drug therapy
CPT/HCPCS: 36415; 80053; 80061; 82043; 82570; 83036; 84144; 84439; 84443; 84481; 84999; 85025; 86803; 87389

== ENCOUNTER 2022-12-13 16:04 | Emergency (ER) | payer OTHER, SELFPAY ==
[2022-12-13] VITALS (19 sets, daily range): BP systolic 127–156; BP diastolic 63–89; PULSE 85–116; RESP 16–36; TEMP 36.8; O2SAT 91–96; BMI 42.7
--- NOTE | 2022-12-13 18:25 | ED.SKABFB ---
HPI - Skin/Abscess/Foreign Bdy General Chief complaint: Skin/Abscess/Foreign Body Stated complaint: Headache, Rash, UTI/Ecoli Time Seen by Provider: 12/13/22 17:59 Source: patient and family Mode of arrival: Ambulatory Limitations: no limitations History of Present Illness HPI narrative: 57-year-old female who has been on Macrobid for the past 5 days. She did take a dose this morning. This was secondary to a E coli UTI. She states that for the past 5 days she has had a headache. She states she does have a history of migraines but it was many years ago was the last time that she had a headache. She is having nausea but no vomiting. No neck pain. No fevers but is having chills. She also states that she woke up 4 days ago with a rash on both of her shins. It is somewhat itchy. She is not having problems breathing. No vomiting. No change in bowel habits. Her urinary symptoms have improved. She does have an inhaler that she uses at home. She states she has never had an official diagnosis of any lung pathology. Who states that all of her providers have just refilled her albuterol. States that occasionally she starts that problems breathing and she uses her albuterol and then she starts coughing things up in an improved. She had a telemedicine appointment with the doctor earlier today who told her that the rash is not consistent with an allergic reaction. Related Data Home Medications Medication Instructions Recorded Confirmed multivit with 1 tab PO DAILY 11/05/22 12/12/22 ljpvlcfi-onbn-MM-lutein 8 mg iron-400 mcg-300 mcg tablet (Centrum Silver Women) Previous Rx's Medication Instructions Recorded ondansetron 8 mg disintegrating 8 mg sublingual Q6HP PRN Nausea 01/07/20 tablet #60 tabs Glucose Monitor #1 ea 07/20/20 Glucose Test Strips #100 ea 07/20/20 Ostomy Bags #40 ea 04/26/21 lamotrigine 150 mg tablet See Rx Instructions .Route 06/04/22 .COMPLEX #90 tabs metformin 1,000 mg tablet See Rx Instructions .Route 07/25/22 .COMPLEX #180 tabs omeprazole 40 mg capsule,delayed See Rx Instructions .Route 08/13/22 release .COMPLEX #90 caps buspirone 30 mg tablet See Rx Instructions .Route 10/21/22 .COMPLEX #180 tabs divalproex 500 mg tablet,delayed See Rx Instructions .Route 10/21/22 release .COMPLEX #180 tabs spironolactone 100 mg tablet 100 mg PO DAILY PRN edema #90 tabs 11/12/22 gabapentin 100 mg capsule See Rx Instructions .Route 11/20/22 .COMPLEX #30 caps alprazolam 0.5 mg tablet 0.5 mg PO DAILY #20 tabs 11/28/22 doxepin 3 mg tablet 3 mg PO BEDTIME #90 tabs 11/28/22 albuterol sulfate 90 mcg/actuation 2 puff inhalation Q4-6H #8.5 grams 12/12/22 aerosol inhaler (Ventolin HFA) benzonatate 100 mg capsule 100 mg PO BID-TID PRN cough #30 12/12/22 caps oseltamivir 75 mg capsule 75 mg PO BID 5 days #10 caps 12/12/22 tiotropium bromide 2.5 2 puff inhalation QAM #4 grams 12/12/22 mcg/actuation mist for inhalation (Spiriva Respimat) budesonide-formoterol HFA 80 2 puff inhalation BID #10.2 grams 12/13/22 mcg-4.5 mcg/actuation aerosol inhaler osuhtrwogw-parntvsbhnuwo-vbvhtkit 1 cap PO Q4-6H PRN pain #14 caps 12/14/22 50 mg-300 mg-40 mg capsule (Fioricet) prednisone 20 mg tablet 20 mg PO DAILY 7 days #7 tabs 12/14/22 Allergies Allergy/AdvReac Type Severity Reaction Status Date / Time lorazepam [From ATIVAN] Allergy Intermediate PT REFUSES Verified 11/05/22 14:38 MEDICATION morphine [MORPHINE] Allergy Intermediate PT REFUSES Verified 11/05/22 14:38 MEDICATION hydrochlorothiazide AdvReac Severe peripheral Verified 11/05/22 14:38 edema, pruritus Review of Systems Review of Systems ROS Unobtainable: All systems reviewed & are unremarkable except as noted in HPI and below Patient History Medical History ADHD (attention deficit hyperactivity disorder) Anemia (~1975) Asthma (1964) Bipolar affective disorder (1973) Cervical cancer Combined hyperlipidemia associated with type 2 diabetes mellitus Depression (1973) Fibromyalgia (2008) Fractures (1975) Gastric ulcer Gastroesophageal reflux disease without esophagitis (10/09/16) Gastroparesis (10/09/16) Generalized anxiety disorder (1973) Hayfever (1965) Herniated nucleus pulposus, L4-5 Herniated nucleus pulposus, lumbar Hiatal hernia Hypertension Insomnia (07/29/17) Morbid obesity with BMI of 45.0-49.9, adult Osteoarthritis (2013) Osteoporosis (2010) Presence of colostomy (10/09/16) PTSD (post-traumatic stress disorder) (1973) RLS (restless legs syndrome) (1992) Shoulder pain (2016) Tobacco use (10/09/16) Tubular adenoma of colon Type 2 diabetes mellitus Surgical History Anesthesia History of bladder suspension procedure (2003) S/P right knee surgery (~11/06/21) Status post breast biopsy Status post colostomy Status post dilation and curettage Status post hysterectomy Status post laminectomy Status post rotator cuff repair (2014) Status post tubal ligation Family History Grandmother Stroke Grandfather Emphysema, unspecified Grandfather No problems noted. Father No problems noted. Mother No problems noted. Grandmother No problems noted. Social History Smoking Status: Current every day smoker Smoking Status: Current every day smoker alcohol intake frequency: 0-2 drinks per day Substance Use Type: does not use Exam Initial Vital Signs Initial Vital Signs: Vital Signs Temperature 98.2 F 12/13/22 16:10 Pulse Rate 108 H 12/13/22 16:10 Respiratory Rate 22 12/13/22 16:10 Blood Pressure 146/74 H 12/13/22 16:10 Pulse Oximetry 94 12/13/22 16:10 Oxygen Delivery Method Room Air 12/13/22 16:10 Const General: cooperative and comfortable HENMT Head: normal to inspection and normocephalic Resp Effort & Inspection: normal respiratory effort Auscultation: clear to auscultation bilaterally Cardio Rate: regular rate Rhythm: regular rhythm GI Inspection: normal to inspection Skin Other: Patient has petechiae rash on bilateral anterior shins. There is some on the posterior aspect of the thighs but is more so anteriorly. Very small amount of the dorsum of the feet. No rash above the knees. Neuro General: patient alert, patient awake, patient oriented x3 and moves all extremities Speech: speech normal Gait: normal gait Motor: muscle tone normal throughout Extrem General: capillary refill normal and edema (1+ peripheral edema bilateral lower extremities) Course Orders Ordered: ED Orders 12/13/22 18:54 XR chest 1V Stat RT Consult Eval and Treat NOW 12/13/22 19:07 Complete Blood Count AUTO DIFF Stat Comprehensive Metabolic Panel Stat Lipase Stat 12/13/22 19:30 Respiratory Panel (Film Array) Stat 12/13/22 21:04 CT head/brain wo con Stat 12/13/22 21:05 CT angio chest PE protocol Stat 12/13/22 23:45 Urine Culture Stat Discontinued Medications Acetaminophen (Acetaminophen 325 Mg Tablet) 650 mg PO NOW ONE Stop: 12/13/22 19:52 Last Admin: 12/13/22 20:20 Dose: 650 mg Documented By: ST Albuterol/Ipratropium (Albuterol/Ipratropium 3 Ml Ampul) 3 ml INH NOW ONE Stop: 12/13/22 18:55 Last Admin: 12/13/22 19:35 Dose: 3 ml Documented By: HOMER Diphenhydramine HCl (Diphenhydramine 50 Mg/Ml Vial) 25 mg IV NOW ONE Stop: 12/13/22 18:26 Last Admin: 12/13/22 19:22 Dose: 25 mg Documented By: ST Hydromorphone HCl (Hydromorphone 0.5 Mg Inj) 0.5 mg IV NOW ONE Stop: 12/13/22 21:12 Last Admin: 12/13/22 21:41 Dose: 0.5 mg Documented By: SB Hydromorphone HCl (Hydromorphone 0.5 Mg Inj) 0.5 mg IV NOW ONE Stop: 12/14/22 00:00 Last Admin: 12/14/22 00:13 Dose: 0.5 mg Documented By: BS Sodium Chloride (Normal Saline 0.9%) 1,000 mls @ 1,000 mls/hr IV BOLUS ONE Stop: 12/13/22 19:24 Last Infusion: 12/13/22 20:27 Dose: 0 mls/hr Documented By: Admin: 12/13/22 19:21 Dose: 1,000 mls/hr Documented By: Sodium Chloride (Normal Saline 0.9%) 1,000 mls @ 1,000 mls/hr IV BOLUS ONE Stop: 12/13/22 22:10 Last Infusion: 12/13/22 23:05 Dose: 0 mls/hr Documented By: Admin: 12/13/22 21:42 Dose: 1,000 mls/hr Documented By: BRITTON Ketorolac Tromethamine (Ketorolac 30 Mg/Ml Vial) 30 mg IV NOW ONE Stop: 12/13/22 19:52 Last Admin: 12/13/22 20:19 Dose: 30 mg Documented By: ST Methylprednisolone (Methylprednisolone 125 Mg/2 Ml Vial) 125 mg IV NOW ONE Stop: 12/13/22 18:55 Last Admin: 12/13/22 19:21 Dose: 125 mg Documented By: ST Metoclopramide HCl (Metoclopramide 10 Mg/2 Ml Inj) 10 mg IV NOW ONE Stop: 12/13/22 18:26 Last Admin: 12/13/22 19:21 Dose: 10 mg Documented By: Vital Signs Vital signs: Vital Signs - 8 hr 12/13/22 19:00 12/13/22 19:00 12/13/22 19:15 Temperature Pulse Rate 115 H 111 H Respiratory Rate 27 H 31 H Blood Pressure 132/73 Pulse Oximetry 95 94 Oxygen Delivery Method Nasal Cannula Nasal Cannula Oxygen Flow Rate 2 2 12/13/22 19:15 12/13/22 19:30 12/13/22 19:30 Temperature Pulse Rate 107 H Respiratory Rate 29 H Blood Pressure 138/81 154/89 H Pulse Oximetry 96 Oxygen Delivery Method Nasal Cannula Oxygen Flow Rate 2 12/13/22 19:45 12/13/22 19:45 12/13/22 20:00 Temperature Pulse Rate 110 H Respiratory Rate 34 H Blood Pressure 156/81 H 146/77 H Pulse Oximetry 96 Oxygen Delivery Method Oxygen Flow Rate 12/13/22 20:00 12/13/22 20:15 12/13/22 20:15 Temperature Pulse Rate 110 H 110 H Respiratory Rate 36 H 29 H Blood Pressure 140/73 Pulse Oximetry 93 94 Oxygen Delivery Method Nasal Cannula Oxygen Flow Rate 2 12/13/22 20:30 12/13/22 20:30 12/13/22 20:45 Temperature Pulse Rate 109 H 109 H Respiratory Rate 24 34 H Blood Pressure 138/74 Pulse Oximetry 94 Oxygen Delivery Method Nasal Cannula Oxygen Flow Rate 2 12/13/22 20:45 12/13/22 21:00 12/13/22 21:00 Temperature Pulse Rate 108 H Respiratory Rate 29 H Blood Pressure 133/71 128/72 Pulse Oximetry 91 Oxygen Delivery Method Oxygen Flow Rate 12/13/22 21:38 12/13/22 22:00 12/13/22 22:30 Temperature Pulse Rate 102 H 97 H 93 H Respiratory Rate 16 23 26 H Blood Pressure Pulse Oximetry 94 93 93 Oxygen Delivery Method Nasal Cannula Nasal Cannula Nasal Cannula Oxygen Flow Rate 2 2 2 12/13/22 23:00 12/13/22 23:30 12/14/22 00:13 Temperature 97.8 F Pulse Rate 85 88 Respiratory Rate 17 23 Blood Pressure 137/78 Pulse Oximetry 95 94 94 Oxygen Delivery Method Oxygen Flow Rate MDM - Skin/Abscess/Foreign Bdy Lab Data Attestation: I reviewed the patient's lab results. 12/13/22 19:07 12/13/22 19:07 Labs: Lab Results 12/13/22 12/13/22 12/13/22 Range/Units 19:07 19:07 19:30 WBC 11.9 H (4.5-11.0) X10^3/uL RBC 5.13 (4.0-5.2) X10^6/uL Hgb 16.2 H (12.0-16.0) g/dL Hct 47.5 H (36-46) % MCV 92.7 (80-100) fL MCH 31.5 (26-34) PG MCHC 34.0 (30-36) % RDW 13.6 (11.6-14.8) % Plt Count 163 (150-400) X10^3/uL Neut % (Auto) 80.3 H (50-75) % Lymph % (Auto) 7.6 L (25-40) % [place] % (Auto) 10.8 (3-14) % Eos % (Auto) 0.8 L (2-4) % Baso % (Auto) 0.5 (0-2) % Neut # (Auto) 9600 H (1513-8616) /uL Lymph # (Auto) 900 L (9671-0685) /uL [place] # (Auto) 1300 H (0-900) /uL Eos # (Auto) 100 (0-450) /uL Baso # (Auto) 100 (0-100) /uL Sodium 135 L (137-145) mmol/L Potassium 3.8 (3.4-5.1) mmol/L Chloride 96 L (98-107) mmol/L Carbon Dioxide 29 (22-32) mmol/L BUN 4 L (7-17) mg/dL Creatinine 0.51 L (0.52-1.04) mg/dL Estimated GFR > 60 (>60) mL/min BUN/Creatinine Ratio 7.8 (6-22) Glucose 130 H (70-100) mg/dL Calcium 9.3 (8.4-10.2) mg/dL Total Bilirubin 3.4 H (0.2-1.3) mg/dL AST 565 H (14-36) IU/L ALT 1251 H (<35) IU/L Alkaline Phosphatase 276 H (38-126) U/L Total Protein 7.6 (6.3-8.2) g/dL Albumin 3.7 (3.5-5.0) g/dL Globulin 3.9 (1.7-4.1) g/dL Albumin/Globulin Ratio 0.9 L (1.0-2.8) Lipase 17 L (23-300) U/L Chlamy pneumoniae PCR Not detected (Not Detect) Adenovirus (PCR) Not detected (Not Detect) B. pertussis DNA (PCR) Not detected (Not Detecte) B.parapertussis DNA PCR Not detected (Not Detecte) Coronavirus OC43 (PCR) Not detected (Not Detect) Coronavirus HKU1 (PCR) Not detected (Not Detect) Coronavirus 229E (PCR) Not detected (Not Detect) SARS-CoV-2 (PCR) Not detected (Not Detecte) Coronavirus NL63 (PCR) Not detected (Not Detect) Human Metapneumovir PCR Not detected (Not Detect) Influenza Type A (PCR) Not detected (Not Detect) Influenza Type B (PCR) Not detected (Not Detect) M. pneumoniae (PCR) Not detected (Not Detect) Parainfluenza 1 (PCR) Not detected (Not Detect) Parainfluenza 2 (PCR) Not detected (Not Detect) Parainfluenza 3 (PCR) Not detected (Not Detect) Parainfluenza 4 (PCR) Not detected (Not Detect) RSV (PCR) Not detected (Not Detect) Entero/Rhino (PCR) Not detected (Not Detect) Point of Care Testing Glucose POC 185 Imaging Data Chest x-ray: Radiologist's Impression: PROCEDURE:? XR CHEST 1V ? INDICATIONS:? SOB ? TECHNIQUE:? One view of the chest was acquired.? ? COMPARISON:? None. ? FINDINGS:? ? Surgical changes and devices:? None.? ? Lungs and pleura:? Mild diffuse interstitial prominence.? No focal airspace disease.? Mild perihilar airway thickening.? No pneumothorax or pleural effusion. ? Mediastinum:? Mediastinal contours appear normal.? Heart size is normal.? ? Bones and chest wall:? No suspicious bony lesions.? Overlying soft tissues appear unremarkable.? ? IMPRESSION:? Mild diffuse interstitial prominence with perihilar airway thickening which may represent an infectious or inflammatory bronchitis.? No focal consolidation. CT scan - head: Radiologist's Impression: PROCEDURE:? CT HEAD/BRAIN WO CON ? INDICATIONS:? headache ? TECHNIQUE:? Noncontrast 4.5 mm thick angled axial sections acquired from the foramen magnum to the vertex, with coronal and sagittal reformats.? For radiation dose reduction, the following was used:? automated exposure control, adjustment of mA and/or kV according to patient size.? ? COMPARISON:? None. ? FINDINGS:? Image quality:? Excellent.? ? CSF spaces:? Basal cisterns are patent.? No extra-axial fluid collections.? Ventricles are normal in size and shape.? ? Brain:? No intracranial hemorrhage, mass, or mass effect.? [place]-white matter interface appears preserved.? ? Skull and face:? Calvarium and visualized facial bones are intact, without suspicious lesions.? There is a left supraorbital eyebrow ring. ? Sinuses:? Visualized sinuses and mastoids are clear.? ? IMPRESSION:? ? 1. No acute intracranial abnormality. CT scan - chest: Radiologist's Impression: PROCEDURE:? CT ANGIO CHEST PE PROTOCOL ? INDICATIONS:? Chest pain, shortness of breath, tachycardia ? TECHNIQUE:? After the administration of intravenous contrast, 2 mm thick sections acquired from the pulmonary apices to the posterior costophrenic angles.? 3-dimensional maximum intensity projection (MIP) coronal and sagittal reformats were then acquired through the thorax.? For radiation dose reduction, the following was used:? automated exposure control, adjustment of mA and/or kV according to patient size.? ? COMPARISON:? None. ? FINDINGS:? Image quality:? Excellent.? ? Pulmonary arteries:? Pulmonary arteries are normal in size, and demonstrate no intraluminal filling defects to suggest central pulmonary embolism.? ? Lower Neck: No lymphadenopathy by size criteria. Thyroid:? Visualized thyroid demonstrates no discrete nodules. Axillae: No lymphadenopathy by size criteria. Chest Wall:? Unremarkable.? Bones: Visualized osseous structures demonstrate no suspicious lesions. ? Lungs and Airways:? There are small posterior areas of dependent atelectasis and mild consolidation in the lower lobes.? There are mild paraseptal emphysematous changes.? The trachea and central airways are patent. Pleura: No pneumothorax or pleural effusions.? ? Heart: Heart size is normal.? No pericardial effusion. Thoracic Vessels: The thoracic aorta is normal in size.? Mediastinum and [place]: No lymphadenopathy by size criteria. Esophagus: No wall thickening. No hiatal hernia. ? Abdomen:? Visualized upper abdomen demonstrates diffuse hypoattenuation of the liver consistent with fatty infiltration. ? IMPRESSION:? ? 1. No evidence of pulmonary embolism. ? 2. Small posterior areas of dependent atelectasis and mild consolidation in the lower lobes. ? 3. Mild paraseptal emphysematous changes bilaterally. ? 4. Hepatic steatosis.? MDM Narrative Medical decision making narrative: Petechiae on her lower extremities is not consistent with cellulitis as it is equal bilateral and does not extend above the knees in his mostly on the anterior aspect of the shins. If it suspect that cellulitis would be predominantly 1 leg versus the other. Is also not consistent with an allergic reaction. It is not urticarial. There are no vesicles. It does have petechiae. Her platelets are unremarkable. Her white blood cell count is unremarkable. Unsure the exact etiology of the rash but does not appear to be an emergent issue. Patient is having a headache. Her head CT is unremarkable. She is afebrile. No neck pain. Low suspicion for meningitis. She does have a history of headaches. She states her headache is improved after medications here in the ER. Patient did have some periods of hypoxia. She states that she is no diagnosed underlying lung pathology. Because of her tachycardia and her hypoxia CT scan was ordered. No acute pathology noted here. There is no signs of pneumonia. By be is to have her stop taking the Macrobid. She is been on it for 5 days. If the rash in her lower extremities is related to the Macrobid all stopping this would be important. A another urine culture was obtained from her urinalysis today. We will put her on steroids for the next couple days. Did consider other etiologies such as TTP/ITP/HUS however her labs not support this she is not thrombocytopenic. She is also not had any bloody stool. She does have elevations in her LFTs and bilirubin. She is no abdominal tenderness. I did inform her of these abnormalities. Given her improvement of symptoms plan will be is to discharge the patient home. Will put her on steroids for the next couple days. She was given return precautions and follow-up instructions. She expressed understanding and agreement. Discharge Plan Departure Patient Disposition: Home Clinical Impression: Headache, Rash Instructions: DI for Rash, DI for Headache Activity Restrictions/Additional Instructions: I recommend that you continue to take all of your medications as directed. Contact your primary doctor for follow-up. I do recommend that you stop taking the Macrobid. The urine culture was obtained today and we will contact you for any positive results. Return to the emergency department for new or worsening symptoms. Prescriptions: New prednisone 20 mg tablet 20 mg PO DAILY 7 Days Qty: 7 0RF vqiyrgefbd-urivdcsutwcbr-jaiu [Fioricet] 50-300-40 mg capsule 1 cap PO Q4-6H PRN (Reason: pain) Qty: 14 0RF No Action Centrum Silver Women 8 mg iron-400 mcg-300 mcg tablet 1 tab PO DAILY ondansetron 8 mg tablet,disintegrating 8 mg Sublingual Q6HP PRN (Reason: Nausea) Qty: 60 1RF (DME) Glucose Monitor See Rx Instructions .Route .MEDSUPPLY Qty: 1 0RF Rx Instructions: As directed (DME) Glucose Test Strips See Rx Instructions .Route .MEDSUPPLY Qty: 100 3RF Rx Instructions: Test blood glucose each morning while fasting (DME) Ostomy Bags See Rx Instructions .Route .MEDSUPPLY Qty: 40 11RF Rx Instructions: Change ostomy bag one to two times daily as needed. lamotrigine 150 mg tablet See Rx Instructions .ROUTE .COMPLEX Qty: 90 3RF Dose Instruction: TAKE ONE TABLET BY MOUTH ONCE DAILY Rx Instructions: TAKE ONE TABLET BY MOUTH ONCE DAILY metformin 1,000 mg tablet See Rx Instructions .ROUTE .COMPLEX Qty: 180 3RF Dose Instruction: TAKE ONE TABLET BY MOUTH TWICE DAILY Rx Instructions: TAKE ONE TABLET BY MOUTH TWICE DAILY omeprazole 40 mg capsule,delayed release(DR/EC) See Rx Instructions .ROUTE .COMPLEX Qty: 90 3RF Dose Instruction: TAKE ONE CAPSULE BY MOUTH ONCE DAILY Rx Instructions: TAKE ONE CAPSULE BY MOUTH ONCE DAILY buspirone 30 mg tablet See Rx Instructions .ROUTE .COMPLEX Qty: 180 1RF Dose Instruction: TAKE TWO TABLETS BY MOUTH DAILY Rx Instructions: TAKE TWO TABLETS BY MOUTH DAILY divalproex 500 mg tablet,delayed release (DR/EC) See Rx Instructions .ROUTE .COMPLEX Qty: 180 1RF Dose Instruction: TAKE TWO TABLETS BY MOUTH DAILY Rx Instructions: TAKE TWO TABLETS BY MOUTH DAILY spironolactone 100 mg tablet 100 mg PO DAILY PRN (Reason: edema) Qty: 90 1RF gabapentin 100 mg capsule See Rx Instructions .ROUTE .COMPLEX Qty: 30 0RF Dose Instruction: TAKE 1 OR 2 CAPSULES BY MOUTH AT BEDTIME NEEDED FOR SLEEP Rx Instructions: TAKE 1 OR 2 CAPSULES BY MOUTH AT BEDTIME NEEDED FOR SLEEP budesonide-formoterol 80-4.5 mcg/actuation HFA aerosol inhaler 2 puff inhalation BID Qty: 10.2 1RF Rx Instructions: Inhale 2 puffs twice per day routinely. NOT A RESCUE INHALER Spiriva Respimat 2.5 mcg/actuation mist 2 puff inhalation QAM Qty: 4 0RF Hold Instructions: too expensive Rx Instructions: 2 puffs daily albuterol sulfate [Ventolin HFA] 90 mcg/actuation HFA aerosol inhaler 2 puff inhalation Q4-6H Qty: 8.5 3RF benzonatate 100 mg capsule 100 mg PO BID-TID PRN (Reason: cough) Qty: 30 0RF Rx Instructions: Take 1 tab by mouth as needed for cough oseltamivir 75 mg capsule 75 mg PO BID 5 Days Qty: 10 0RF alprazolam 0.5 mg tablet 0.5 mg PO DAILY Qty: 20 1RF doxepin 3 mg tablet 3 mg PO BEDTIME Qty: 90 0RF Rx Instructions: Take 1 tab at bedtime daily, ok to repeat in 1/2 hour, next night take 2 caps, ok to repeat 3mg in 1/2 hour, max 9mg/24 hours Referrals: Cherie Gray ARNP [Primary Care Provider] - Stand Alone Forms: Patient Portal/API
--- NOTE | 2022-12-13 18:52 | PC.NURSE ---
Attempted 2 IV starts without success. Another RN contacted for ultrasound start.
--- NOTE | 2022-12-13 18:54 | DI.RAD.S_ITS ---
PROCEDURE: XR CHEST 1V INDICATIONS: SOB TECHNIQUE: One view of the chest was acquired. COMPARISON: None. FINDINGS: Surgical changes and devices: None. Lungs and pleura: Mild diffuse interstitial prominence. No focal airspace disease. Mild perihilar airway thickening. No pneumothorax or pleural effusion. Mediastinum: Mediastinal contours appear normal. Heart size is normal. Bones and chest wall: No suspicious bony lesions. Overlying soft tissues appear unremarkable. IMPRESSION: Mild diffuse interstitial prominence with perihilar airway thickening which may represent an infectious or inflammatory bronchitis. No focal consolidation. Dictated by: Robert Cordero M.D. on 12/13/2022 at 20:59 Approved by: Robert Cordero M.D. on 12/13/2022 at 21:00
--- NOTE | 2022-12-13 19:15 | PC.NURSE ---
Pt c/o migraine (reports hx migraines >20 yrs ago) and has itchy, painful raised rash on bilateral lower legs. Pt is visibly dyspneic, c/o SOB. Reports she used her inhaler three times today with some relief, but she has become short of breath again. Lungs sounds are clear and diminished on auscultation.
[2022-12-13] MEDS: methylPREDNISolone 125 MG/2 ML VIAL IV (19:21)
[2022-12-13] MEDS: METOCLOPRAMIDE 10 MG/2 ML INJ IV (19:21)
[2022-12-13] MEDS: SODIUM CHLORIDE 0.9% 1,000 ML 1000 ML IV ×2 (19:21→21:42)
[2022-12-13] MEDS: diphenhydrAMINE 50 MG/ML VIAL 25 MG IV (19:22)
[2022-12-13 19:26] LABS: Add Manual Diff / Slide Review NO; Basophils Absolute Auto 100 /uL (0-100); Basophils Percent Auto 0.5 % (0-2); Eosinophils Absolute Auto 100 /uL (0-450); Eosinophils Percent Auto 0.8 % (2-4); Hematocrit 47.5 % (36-46); Hemoglobin 16.2 g/dL (12.0-16.0); Lymphocytes Absolute Auto 900 /uL (1100-4500); Lymphocytes Percent Auto 7.6 % (25-40); Mean Corpuscular Hemoglobin 31.5 PG (26-34); Mean Corpuscular Volume 92.7 fL (80-100); Monocytes Absolute Auto 1300 /uL (0-900); Monocytes Percent Auto 10.8 % (3-14); Neutrophils Absolute Auto 9600 /uL (1500-7000); Neutrophils Percent Auto 80.3 % (50-75); Platelet Count 163 X10^3/uL (150-400); Red Blood Cell Count 5.13 X10^6/uL (4.0-5.2); Red Cell Distribution Width 13.6 % (11.6-14.8); White Blood Cell Count 11.9 X10^3/uL (4.5-11.0)
[2022-12-13 19:35] LABS: Albumin 3.7 g/dL (3.5-5.0); Albumin Globulin Ratio 0.9 (1.0-2.8); Alkaline Phosphatase 276 U/L (38-126); Aspartate Aminotransferase 565 IU/L (14-36); BUN Creatinine Ratio 7.8 (6-22); Bilirubin Total 3.4 mg/dL (0.2-1.3); Blood Urea Nitrogen 4 mg/dL (7-17); Calcium 9.3 mg/dL (8.4-10.2); Carbon Dioxide 29 mmol/L (22-32); Chloride 96 mmol/L (98-107); Estimated Glomerular Filt Rate > 60 mL/min (>60); Globulin 3.9 g/dL (1.7-4.1); Glucose 130 mg/dL (70-100); HEMOLYSIS 33 (0-50); Lipase 17 U/L (23-300); Potassium 3.8 mmol/L (3.4-5.1); Sodium 135 mmol/L (137-145); Total Protein 7.6 g/dL (6.3-8.2)
[2022-12-13] MEDS: ALBUTEROL/IPRATROPIUM 3 ML AMPUL INH (19:35)
[2022-12-13 19:43] LABS: Alanine Aminotransferase 1251 IU/L (<35)
[2022-12-13] MEDS: KETOROLAC 30 MG/ML VIAL IV (20:19)
[2022-12-13] MEDS: ACETAMINOPHEN 325 MG TABLET 650 MG PO (20:20)
[2022-12-13 20:44] LABS: Adenovirus Not Detected (Not Detect); B. parapertussis Not Detected (Not Detecte); Bordetella pertussis Not Detected (Not Detecte); Chlamydophila pneumoniae Not Detected (Not Detect); Coronavirus 229E Not Detected (Not Detect); Coronavirus HKU1 Not Detected (Not Detect); Coronavirus NL 63 Not Detected (Not Detect); Coronavirus OC43 Not Detected (Not Detect); Human Metapneumovirus Not Detected (Not Detect); Human Rhinovirus/Enterovirus Not Detected (Not Detect); Influenza A Not Detected (Not Detect); Influenza B Not Detected (Not Detect); Mycoplasma pneumoniae Not Detected (Not Detect); Parainfluenza Virus 1 Not Detected (Not Detect); Parainfluenza Virus 2 Not Detected (Not Detect); Parainfluenza Virus 3 Not Detected (Not Detect); Parainfluenza Virus 4 Not Detected (Not Detect); Respiratory Syncytial Virus Not Detected (Not Detect); SARS- CoV-2 Not Detected (Not Detecte)
--- NOTE | 2022-12-13 21:04 | DI.CT.S_ITS ---
PROCEDURE: CT HEAD/BRAIN WO CON INDICATIONS: headache TECHNIQUE: Noncontrast 4.5 mm thick angled axial sections acquired from the foramen magnum to the vertex, with coronal and sagittal reformats. For radiation dose reduction, the following was used: automated exposure control, adjustment of mA and/or kV according to patient size. COMPARISON: None. FINDINGS: Image quality: Excellent. CSF spaces: Basal cisterns are patent. No extra-axial fluid collections. Ventricles are normal in size and shape. Brain: No intracranial hemorrhage, mass, or mass effect. [place]-white matter interface appears preserved. Skull and face: Calvarium and visualized facial bones are intact, without suspicious lesions. There is a left supraorbital eyebrow ring. Sinuses: Visualized sinuses and mastoids are clear. IMPRESSION: 1. No acute intracranial abnormality. Dictated by: Serge Sesay M.D. on 12/13/2022 at 22:39 Approved by: Serge Sesay M.D. on 12/13/2022 at 22:41
--- NOTE | 2022-12-13 21:05 | DI.CT.S_ITS ---
PROCEDURE: CT ANGIO CHEST PE PROTOCOL INDICATIONS: Chest pain, shortness of breath, tachycardia TECHNIQUE: After the administration of intravenous contrast, 2 mm thick sections acquired from the pulmonary apices to the posterior costophrenic angles. 3-dimensional maximum intensity projection (MIP) coronal and sagittal reformats were then acquired through the thorax. For radiation dose reduction, the following was used: automated exposure control, adjustment of mA and/or kV according to patient size. COMPARISON: None. FINDINGS: Image quality: Excellent. Pulmonary arteries: Pulmonary arteries are normal in size, and demonstrate no intraluminal filling defects to suggest central pulmonary embolism. Lower Neck: No lymphadenopathy by size criteria. Thyroid: Visualized thyroid demonstrates no discrete nodules. Axillae: No lymphadenopathy by size criteria. Chest Wall: Unremarkable. Bones: Visualized osseous structures demonstrate no suspicious lesions. Lungs and Airways: There are small posterior areas of dependent atelectasis and mild consolidation in the lower lobes. There are mild paraseptal emphysematous changes. The trachea and central airways are patent. Pleura: No pneumothorax or pleural effusions. Heart: Heart size is normal. No pericardial effusion. Thoracic Vessels: The thoracic aorta is normal in size. Mediastinum and Luzma: No lymphadenopathy by size criteria. Esophagus: No wall thickening. No hiatal hernia. Abdomen: Visualized upper abdomen demonstrates diffuse hypoattenuation of the liver consistent with fatty infiltration. IMPRESSION: 1. No evidence of pulmonary embolism. 2. Small posterior areas of dependent atelectasis and mild consolidation in the lower lobes. 3. Mild paraseptal emphysematous changes bilaterally. 4. Hepatic steatosis. Dictated by: Serge Sesay M.D. on 12/13/2022 at 23:04 Approved by: Serge Sesay M.D. on 12/13/2022 at 23:07
[2022-12-13] MEDS: HYDROMORPHONE 0.5 MG INJ IV (21:41)
--- NOTE | 2022-12-13 22:33 | PC.NURSE ---
Pt resting comfortably. Reports migraine and dyspnea have improved. Provided ice water with MD approval.
--- NOTE | 2022-12-13 23:42 | PC.NURSE ---
pt ambulated 10-15ft maintaining >94% o2 sats on room air
[2022-12-14 00:13] VITALS: BP 137/78; TEMP 36.6; O2SAT 94
[2022-12-14] MEDS: HYDROMORPHONE 0.5 MG INJ IV (00:13)
== END 2022-12-14 00:27 | disposition home or self-care (01) ==
PROVIDERS: Emergency Provider Emergency Medicine; PCP Nurse Practitioner
DX: R51.9 Headache, unspecified (principal); R21 Rash and other nonspecific skin eruption; R06.02 Shortness of breath; Z20.822 Contact with and (suspected) exposure to COVID-19
CPT/HCPCS: 36415; 70450; 71045; 71275; 80053; 82962; 83690; 85025; 87086; 87633; 96361; 96374; 96375; 96376; 99284; 99285; J1170; J1200; J1885; J2765; J2930; Q9967

== ENCOUNTER → 2022-12-18 11:42 | Outpatient (CLI) | payer OTHER, SELFPAY ==
[2022-12-18 12:48] LABS: Appearance Urine UA CLEAR; Bilirubin Urine UA NEGATIVE (NEGATIVE); Color Urine UA YELLOW; Glucose Urine UA NEGATIVE (Negative); Ketones Urine UA TRACE (NEGATIVE); Leukocyte Esterase Urine UA NEGATIVE (NEGATIVE); Nitrite Urine UA NEGATIVE (Negative); Occult Blood Urine UA NEGATIVE (Negative); Protein Urine UA NEGATIVE (Negative); Specific Gravity Urine UA <=1.005 (1.000-1.035)
[2022-12-18 12:52] LABS: pH Urine UA 6.5 (4.5-8.0)
[2022-12-18 12:58] LABS: Bacteria Urine None Seen; Culture Indicated Urine Cult Not Indicated; RBC Urine None Seen (0-5/HPF); Squamous Epithelial Cell Urine 0-1 /HPF (0-5/HPF); WBC Urine None Seen (0-5/HPF)
[2022-12-28 14:22] LABS: Free Progesterone <0.30 ng/dL (.); Progesterone, Serum <10 ng/dL (.)
== END ==
PROVIDERS: PCP Nurse Practitioner; Referring Provider Nurse Practitioner; Visit Provider Nurse Practitioner
DX: N39.0 Urinary tract infection, site not specified (principal)
CPT/HCPCS: 81001; 84144; 84999

== ENCOUNTER → 2023-01-15 07:40 | Outpatient (CLI) | payer OTHER, SELFPAY ==
[2023-01-15 11:36] LABS: Appearance Urine UA CLEAR; Bilirubin Urine UA NEGATIVE (NEGATIVE); Color Urine UA ORANGE; Glucose Urine UA NEGATIVE (Negative); Ketones Urine UA NEGATIVE (NEGATIVE); Leukocyte Esterase Urine UA TRACE (NEGATIVE); Nitrite Urine UA NEGATIVE (Negative); Occult Blood Urine UA TRACE-INTACT (Negative); Protein Urine UA NEGATIVE (Negative); Specific Gravity Urine UA <=1.005 (1.000-1.035); Urobilinogen Urine UA 0.2 E.U./dL (0.2)
[2023-01-15 11:41] LABS: Bacteria Urine None Seen; Culture Indicated Urine Cult Not Indicated; RBC Urine None Seen (0-5/HPF); Squamous Epithelial Cell Urine 1-5 /HPF (0-5/HPF); WBC Urine None Seen (0-5/HPF)
== END ==
PROVIDERS: PCP Nurse Practitioner; Referring Provider Nurse Practitioner; Visit Provider Nurse Practitioner
DX: R30.0 Dysuria (principal); R39.9 Unspecified symptoms and signs involving the genitourinary system
CPT/HCPCS: 81001

== ENCOUNTER → 2023-02-28 07:49 | Outpatient (CLI) | payer OTHER, SELFPAY ==
--- NOTE | 2023-02-28 07:51 | DI.CT.S_ITS ---
PROCEDURE: CT ABDOMEN PELVIS WO/W CON INDICATIONS: Recurring urinary tract infection/history of gross hematuria TECHNIQUE: Optional 5 mm thick noncontrast images acquired from the diaphragm to the symphysis pubis. After the administration of intravenous contrast, 5 mm thick images acquired from the diaphragm to the symphysis pubis after a 10-minute delay. 2 mm thick coronal and sagittal reformats were then performed of the kidneys and ureters. For radiation dose reduction, the following was used: automated exposure control, adjustment of mA and/or kV according to patient size. COMPARISON: None. FINDINGS: Image quality: Excellent. Lung bases: Lung bases are clear. Heart size is normal. Urinary system: Both kidneys are normal in size, without hydronephrosis or nephrolithiasis on pre-contrast images. No perinephric fat stranding. There is normal bilateral renal enhancement. Renal calyces appear normal in morphology when filled with contrast. Opacified portions of both ureters demonstrate normal caliber. Bladder wall thickness is normal. There is slight mass effect of the pelvic floor on the urinary bladder due to surgical changes. No calcified bladder stones. Other solid organs: The liver is mildly enlarged and moderately diffusely hypodense consistent with steatosis. Relative fatty sparing in the gallbladder fossa. The gallbladder is decompressed. Biliary tree is nondilated. Pancreas is normal. Normal size spleen. Mild thickening of the body of the left adrenal gland. There is a low-density round right adrenal nodule measuring 1.7 cm with precontrast Hounsfield units of -4. Peritoneum and bowel: Stomach and small bowel loops are normal caliber. Normal appendix. Sigmoidectomy and partial excision of the rectum. Left anterior abdominal colostomy. Nodes and vessels: No retroperitoneal or mesenteric adenopathy by size criteria. Aorta and inferior vena cava are normal in size. Abdominal wall: No ventral hernias. Pelvis: The uterus is absent. No suspicious adnexal masses. Posterior pelvic sidewall fascial thickening consistent with postsurgical changes. Nonenlarged pelvic sidewall and external iliac chain nodes are present. No hernias. Mild pelvic floor laxity. Bones: No suspicious bone lesions. Severe disc height loss/ankylosis of L5-S1. Mild anterior wedge compression deformity of T11. IMPRESSION: 1. No urinary calcification or obstructive uropathy. No suspicious urinary mass lesion. 2. Surgical changes in the low pelvis and mild pelvic floor laxity. 3. Mild hepatomegaly and moderate hepatic steatosis. 4. Incidental benign right adrenal adenoma. Dictated by: Sita Pacheco M.D. on 02/28/2023 at 11:47 Approved by: Sita Pacheco M.D. on 02/28/2023 at 12:39
[2023-02-28 08:33] LABS: BUN Creatinine Ratio 19.3 (6-22); Blood Urea Nitrogen 11 mg/dL (7-17); Calcium 9.5 mg/dL (8.4-10.2); Carbon Dioxide 27 mmol/L (22-32); Chloride 101 mmol/L (98-107); Estimated Glomerular Filt Rate > 60 mL/min (>60); Glucose 152 mg/dL (70-100); HEMOLYSIS < 15 (0-50); Potassium 4.1 mmol/L (3.4-5.1); Sodium 135 mmol/L (137-145)
== END ==
PROVIDERS: PCP Nurse Practitioner; Referring Provider Urology; Visit Provider Urology
DX: N39.0 Urinary tract infection, site not specified (principal); D35.01 Benign neoplasm of right adrenal gland; K76.0 Fatty (change of) liver, not elsewhere classified; Z87.898 Personal history of other specified conditions; Z72.0 Tobacco use
CPT/HCPCS: 36415; 74178; 80048; Q9967

== ENCOUNTER → 2023-06-05 07:22 | Outpatient (CLI) | payer OTHER, SELFPAY ==
[2023-06-05 08:00] LABS: Hemoglobin A1C% w Est Avg Glu 6.5 % (4.0-6.0)
[2023-06-05 08:06] LABS: Cholesterol 208 mg/dL (140-199); HDL Cholesterol 61 mg/dL (40-60); LDL Cholesterol Calculated 124 mg/dL (<100); Triglycerides 116 mg/dL (35-150)
[2023-06-06 04:08] LABS: Valproic Acid (Depakene) Total 41 ug/mL (50-100)
== END ==
PROVIDERS: PCP Family Medicine; Referring Provider Physician Assistant; Visit Provider Physician Assistant
DX: E11.9 Type 2 diabetes mellitus without complications (principal); E11.69 Type 2 diabetes mellitus with other specified complication; E78.2 Mixed hyperlipidemia; F31.70 Bipolar disorder, currently in remission, most recent episode unspecified
CPT/HCPCS: 36415; 80061; 80164; 83036

== ENCOUNTER → 2023-09-02 08:23 | Outpatient (CLI) | payer OTHER, SELFPAY ==
--- NOTE | 2023-09-02 08:24 | DI.RAD.S_ITS ---
PROCEDURE: XR RIBS LT MIN 3V W CXR1V INDICATIONS: fall 3.16 L rib pn 9-10 posterior pain TECHNIQUE: 2 views of the ribs were acquired, along with a single view chest. COMPARISON: None. FINDINGS: Surgical changes and devices: None. Bones and chest wall: No fractures or dislocations. No suspicious bony lesions. Overlying soft tissues appear unremarkable. Lungs and pleura: No pleural effusions or pneumothorax. Lungs appear clear. Mediastinum: Mediastinal contours appear normal. Heart size is normal. IMPRESSION: No displaced rib fracture or pneumothorax. Dictated by: Estela Umaña M.D. on 09/02/2023 at 9:07 Approved by: Estela Umaña M.D. on 09/02/2023 at 9:08
== END ==
PROVIDERS: PCP Family Medicine; Referring Provider Student in an Organized Health Care Education/Training Program; Visit Provider Student in an Organized Health Care Education/Training Program
DX: R07.81 Pleurodynia (principal)
CPT/HCPCS: 71101

== ENCOUNTER → 2023-12-17 06:26 | Outpatient (CLI) | payer OTHER, SELFPAY ==
[2023-12-17 07:47] LABS: Add Manual Diff / Slide Review NO; Basophils Absolute Auto 0 /uL (0-100); Basophils Percent Auto 0.2 % (0-2); Eosinophils Absolute Auto 100 /uL (0-450); Eosinophils Percent Auto 1.3 % (2-4); Hematocrit 43.9 % (36-46); Hemoglobin 14.8 g/dL (12.0-16.0); Lymphocytes Absolute Auto 3100 /uL (1100-4500); Lymphocytes Percent Auto 33.5 % (25-40); Mean Corpuscular HGB Conc 33.7 % (30-36); Mean Corpuscular Volume 94.8 fL (80-100); Monocytes Absolute Auto 800 /uL (0-900); Monocytes Percent Auto 9.1 % (3-14); Neutrophils Absolute Auto 5100 /uL (1500-7000); Neutrophils Percent Auto 55.9 % (50-75); Platelet Count 228 X10^3/uL (150-400); Red Blood Cell Count 4.63 X10^6/uL (4.0-5.2); Red Cell Distribution Width 13.9 % (11.6-14.8); White Blood Cell Count 9.1 X10^3/uL (4.5-11.0)
[2023-12-17 07:55] LABS: Hemoglobin A1C% w Est Avg Glu 6.7 % (4.0-6.0)
[2023-12-17 08:15] LABS: BUN Creatinine Ratio 26.3 (6-22); Blood Urea Nitrogen 15 mg/dL (7-17); Calcium 9.6 mg/dL (8.4-10.2); Carbon Dioxide 32 mmol/L (22-32); Chloride 104 mmol/L (98-107); Cholesterol 217 mg/dL (140-199); Estimated Glomerular Filt Rate > 60 mL/min (>60); Glucose 157 mg/dL (70-100); HDL Cholesterol 57 mg/dL (40-60); HEMOLYSIS 51 (0-50); LDL Cholesterol Calculated 109 mg/dL (<100); Sodium 138 mmol/L (137-145); Triglycerides 254 mg/dL (35-150)
[2023-12-17 08:17] LABS: Potassium 6.2 mmol/L (3.4-5.1)
[2023-12-17 08:46] LABS: Creatinine Urine Random 56.15 mg/dL
[2023-12-17 08:51] LABS: Microalbumin Urine Random < 0.6 mg/dL (0-1.6)
== END ==
PROVIDERS: PCP Family Medicine; Referring Provider Family Medicine; Visit Provider Family Medicine
DX: E11.9 Type 2 diabetes mellitus without complications (principal); E11.69 Type 2 diabetes mellitus with other specified complication; E78.2 Mixed hyperlipidemia; I10 Essential (primary) hypertension
CPT/HCPCS: 36415; 80048; 80061; 82043; 82570; 83036; 85025

== ENCOUNTER → 2024-07-02 06:36 | Outpatient (CLI) | payer OTHER, SELFPAY ==
[2024-07-02 08:06] LABS: Creatinine Urine Random 39.06 mg/dL
[2024-07-02 08:12] LABS: Hematocrit 43.9 % (36-46); Mean Corpuscular HGB Conc 34.2 % (30-36); Mean Corpuscular Hemoglobin 31.4 PG (26-34); Platelet Count 190 X10^3/uL (150-400); Red Blood Cell Count 4.77 X10^6/uL (4.0-5.2); Red Cell Distribution Width 13.4 % (11.6-14.8); White Blood Cell Count 7.7 X10^3/uL (4.5-11.0)
[2024-07-02 08:13] LABS: Microalbumin Urine Random < 0.6 mg/dL (0-1.6)
[2024-07-02 08:23] LABS: Hemoglobin A1C% w Est Avg Glu 11.4 % (4.0-6.0)
[2024-07-02 08:36] LABS: HEMOLYSIS 38 (0-50); Iron 65 ug/dL (37-170)
[2024-07-02 08:42] LABS: Alanine Aminotransferase 27 IU/L (<35); Albumin Globulin Ratio 1.5 (1.0-2.8); Alkaline Phosphatase 127 U/L (38-126); Aspartate Aminotransferase 25 IU/L (14-36); BUN Creatinine Ratio 27.1 (6-22); Bilirubin Total 0.3 mg/dL (0.2-1.3); Blood Urea Nitrogen 16 mg/dL (7-17); Calcium 9.9 mg/dL (8.4-10.2); Carbon Dioxide 29 mmol/L (22-32); Chloride 98 mmol/L (98-107); Cholesterol 247 mg/dL (140-199); Estimated Glomerular Filt Rate > 60 mL/min (>60); Globulin 2.6 g/dL (1.7-4.1); Glucose 331 mg/dL (70-100); HDL Cholesterol 45 mg/dL (40-60); HEMOLYSIS 22 (0-50); Potassium 5.4 mmol/L (3.4-5.1); Sodium 133 mmol/L (137-145); Total Protein 6.6 g/dL (6.3-8.2); Triglycerides 433 mg/dL (35-150)
[2024-07-02 08:47] LABS: Percent Iron Saturation 22 % (15-50); Total Iron Binding Capacity 294 ug/dL (265-497); Transferrin 276 mg/dL (206-381)
[2024-07-02 09:13] LABS: Ferritin 17 ng/mL (11-264)
[2024-07-03 04:41] LABS: Valproic Acid (Depakene) Total 29 ug/mL (50-100)
== END ==
PROVIDERS: PCP Family Medicine; Referring Provider Family Medicine; Visit Provider Family Medicine
DX: I10 Essential (primary) hypertension (principal); E11.9 Type 2 diabetes mellitus without complications; E11.69 Type 2 diabetes mellitus with other specified complication; E78.2 Mixed hyperlipidemia; Z68.42 Body mass index [BMI] 45.0-49.9, adult; E66.01 Morbid (severe) obesity due to excess calories; F31.70 Bipolar disorder, currently in remission, most recent episode unspecified; Z93.3 Colostomy status; K31.84 Gastroparesis; Z79.899 Other long term (current) drug therapy
CPT/HCPCS: 36415; 80053; 80061; 80164; 82043; 82570; 82728; 83036; 83540; 83550; 85027

== ENCOUNTER → 2024-09-27 06:21 | Outpatient (CLI) | payer OTHER, SELFPAY ==
[2024-09-27 08:02] LABS: Hemoglobin A1C% w Est Avg Glu 8.5 % (4.0-6.0)
[2024-09-27 08:17] LABS: Cholesterol 246 mg/dL (140-199); HDL Cholesterol 56 mg/dL (40-60); LDL Cholesterol Calculated 164 mg/dL (<100); Triglycerides 131 mg/dL (35-150)
== END ==
PROVIDERS: PCP Family Medicine; Referring Provider Family Medicine; Visit Provider Family Medicine
DX: E11.69 Type 2 diabetes mellitus with other specified complication (principal); E78.2 Mixed hyperlipidemia
CPT/HCPCS: 36415; 80061; 83036

== ENCOUNTER → 2025-01-13 06:46 | Outpatient (CLI) | payer OTHER, SELFPAY ==
[2025-01-13 07:42] LABS: Hemoglobin A1C% w Est Avg Glu 6.6 % (4.0-6.0)
== END ==
PROVIDERS: PCP Family Medicine; Referring Provider Family Medicine; Visit Provider Family Medicine
DX: E11.9 Type 2 diabetes mellitus without complications (principal)
CPT/HCPCS: 36415; 83036

== ENCOUNTER → 2025-04-15 06:45 | Outpatient (CLI) | payer OTHER, SELFPAY ==
[2025-04-15 07:51] LABS: Hematocrit 33.2 % (36-46); Hemoglobin 10.5 g/dL (12.0-16.0); Mean Corpuscular HGB Conc 31.6 % (30-36); Mean Corpuscular Hemoglobin 23.8 PG (26-34); Mean Corpuscular Volume 75.4 fL (80-100); Platelet Count 386 X10^3/uL (150-400)
[2025-04-15 08:26] LABS: HEMOLYSIS < 15 (0-50); Hemoglobin A1C% w Est Avg Glu 5.9 % (4.0-6.0); Iron 23 ug/dL (37-170)
[2025-04-15 08:29] LABS: Blood Urea Nitrogen 7 mg/dL (7-17); Calcium 9.0 mg/dL (8.4-10.2); Carbon Dioxide 24 mmol/L (22-32); Chloride 103 mmol/L (98-107); Cholesterol 189 mg/dL (140-199); Estimated Glomerular Filt Rate > 60 mL/min (>60); Glucose 111 mg/dL (70-99); HDL Cholesterol 61 mg/dL (40-60); HEMOLYSIS < 15 (0-50); Potassium 4.2 mmol/L (3.4-5.1); Sodium 137 mmol/L (137-145); Triglycerides 131 mg/dL (35-150)
[2025-04-15 08:40] LABS: Percent Iron Saturation 5 % (15-50); Total Iron Binding Capacity 430 ug/dL (265-497); Transferrin 376 mg/dL (206-381)
[2025-04-15 08:43] LABS: Vitamin D 25 Hydroxy (D3) 32.1 ng/mL (30.0-100.0)
[2025-04-15 09:03] LABS: Ferritin 5 ng/mL (11-264)
[2025-04-15 09:18] LABS: Vitamin B12 Reflex MMA if <400 818 pg/mL (239-931)
[2025-04-16 05:14] LABS: Valproic Acid (Depakene) Total 48 ug/mL (50-100)
== END ==
LOC: LAB 06:46
PROVIDERS: PCP Family Medicine; Referring Provider Family Medicine; Visit Provider Family Medicine
DX: R53.82 Chronic fatigue, unspecified (principal); E11.9 Type 2 diabetes mellitus without complications; F31.70 Bipolar disorder, currently in remission, most recent episode unspecified; I10 Essential (primary) hypertension; Z79.899 Other long term (current) drug therapy
CPT/HCPCS: 36415; 80048; 80061; 80164; 82306; 82607; 82728; 83036; 83540; 83550; 85027